=== PATIENT | female | born 1955 | race Caucasian/White ===

== ENCOUNTER 2019-09-08 08:24 | Inpatient (IN) | payer OTHER ==
[2019-09-08] MEDS ORDERED: IPRATROPIUM 0.5 MG/2.5 ML NEBU INHALATION STA (08:39)
[2019-09-08] MEDS ORDERED: SODIUM CHLORIDE 0.9% 500 ML 500 ML IV STA (08:39)
[2019-09-08] MEDS ORDERED: ALBUTEROL NEBULIZED 2.5 MG/3 ML INHALATION STA (08:39)
[2019-09-08] MEDS ORDERED: methylPREDNISolone SOD SUCCI 125 MG/2 ML VIAL IV STA (08:39)
--- NOTE | 2019-09-08 09:15 | ED ---
General Adult HPI - General Chief complaint: Shortness of Breath Stated complaint: cough/congestion Time Seen by Provider: 09/08/19 08:31 Source: patient, RN notes reviewed, old records reviewed Mode of arrival: ambulatory Limitations: no limitations - History of Present Illness Initial comments: 64-year-old female presenting for evaluation of cough and dyspnea. Cough has been nonproductive. He has been present for approximately 10 days. She's been seen by her primary care physician and prescribed a course of steroids and doxycycline. She is completed her steroids and continues to have persistent cough. Patient denying central chest pain. Denies lower extremity pain or swelling. Denies abdominal pain nausea or vomiting. She has had fever at home up to 101. She has history of COPD, not currently on supplemental oxygen. - Related Data Allergies Allergy/AdvReac Type Severity Reaction Status Date / Time hydroxyzine [From Vistaril] Allergy Anaphylaxis Verified 09/08/19 08:30 Review of Systems ROS Statement: Those systems with pertinent positive or pertinent negative responses have been documented in the HPI. ROS Other: All systems not noted in ROS Statement are negative. Past Medical History Past Medical History: COPD, Diabetes Mellitus, Hypertension Additional Past Medical History / Comment(s): pt states "i've had 2 heart attacks" hx 2004 History of Any Multi-Drug Resistant Organisms: None Reported Past Surgical History: Hysterectomy, Orthopedic Surgery, Tonsillectomy Additional Past Surgical History / Comment(s): bilateral feet Past Psychological History: No Psychological Hx Reported Smoking Status: Current every day smoker Past Alcohol Use History: Occasional Past Drug Use History: None Reported General Exam Limitations: no limitations General appearance: alert, in no apparent distress Head exam: Present: atraumatic, normocephalic Eye exam: Present: normal appearance, PERRL ENT exam: Present: normal exam Neck exam: Present: normal inspection. Absent: meningismus Respiratory exam: Present: respiratory distress, wheezes, decreased breath sounds Cardiovascular Exam: Present: regular rate, normal rhythm GI/Abdominal exam: Present: soft. Absent: distended, tenderness, guarding Neurological exam: Present: alert, oriented X3, CN II-XII intact. Absent: motor sensory deficit Psychiatric exam: Present: normal affect, normal mood Skin exam: Present: warm, dry, intact Course Vital Signs 09/08/19 09/08/19 09/08/19 08:25 08:49 09:05 Temperature 97.8 F Pulse Rate 84 88 92 Respiratory 20 Rate Blood Pressure 175/66 O2 Sat by Pulse 100 Oximetry 09/08/19 10:08 Temperature Pulse Rate Respiratory 20 Rate Blood Pressure O2 Sat by Pulse Oximetry EKG Findings - EKG Comments: EKG Findings:: EKG: Normal sinus rhythm, left atrial enlargement, rate of 89, W[place] interval 124, QRS duration 76, QTC 459, no ST segment elevation Medical Decision Making - Medical Decision Making 64-year-old female with 10 days of cough and dyspnea, failed outpatient treatment. X-ray negative for focal pneumonia, consistent with COPD. Patient has mild leukocytosis 10.7, stable hemoglobin, normal electrolytes. She is influenza and negative. She will be admitted for further treatment of COPD exacerbation. - Lab Data Result diagrams: 09/08/19 09:24 09/08/19 09:24 Lab Results 09/08/19 09/08/19 09/08/19 Range/Units 09:15 09:24 09:24 WBC 10.7 H (3.8-10.6) k/uL RBC 4.99 (3.80-5.40) m/uL Hgb 12.4 (11.4-16.0) gm/dL Hct 38.9 (34.0-46.0) % MCV 77.9 L (80.0-100.0) fL MCH 24.9 L (25.0-35.0) pg MCHC 31.9 (31.0-37.0) g/dL RDW 16.3 H (11.5-15.5) % Plt Count 320 (150-450) k/uL Neutrophils % 66 % Lymphocytes % 24 % Monocytes % 6 % Eosinophils % 2 % Basophils % 1 % Neutrophils # 7.1 (1.3-7.7) k/uL Lymphocytes # 2.6 (1.0-4.8) k/uL Monocytes # 0.7 (0-1.0) k/uL Eosinophils # 0.2 (0-0.7) k/uL Basophils # 0.1 (0-0.2) k/uL Anisocytosis Slight Microcytosis Slight Sodium 131 L (137-145) mmol/L Potassium 3.5 (3.5-5.1) mmol/L Chloride 96 L (98-107) mmol/L Carbon Dioxide 25 (22-30) mmol/L Anion Gap 10 mmol/L BUN 15 (7-17) mg/dL Creatinine 0.74 (0.52-1.04) mg/dL Est GFR (CKD-EPI)AfAm >90 (>60 ml/min/1.73 sqM) Est GFR (CKD-EPI)NonAf 87 (>60 ml/min/1.73 sqM) Glucose 109 H (74-99) mg/dL Plasma Lactic Acid Jose (0.7-2.0) mmol/L Calcium 9.7 (8.4-10.2) mg/dL Magnesium 1.6 (1.6-2.3) mg/dL Total Bilirubin 0.5 (0.2-1.3) mg/dL AST 32 (14-36) U/L ALT 16 (4-34) U/L Alkaline Phosphatase 90 (38-126) U/L Total Protein 7.2 (6.3-8.2) g/dL Albumin 4.6 (3.5-5.0) g/dL Influenza Type A RNA Not Detected (Not Detectd) Influenza Type B (PCR) Not Detected (Not Detectd) 09/08/19 Range/Units 09:24 WBC (3.8-10.6) k/uL RBC (3.80-5.40) m/uL Hgb (11.4-16.0) gm/dL Hct (34.0-46.0) % MCV (80.0-100.0) fL MCH (25.0-35.0) pg MCHC (31.0-37.0) g/dL RDW (11.5-15.5) % Plt Count (150-450) k/uL Neutrophils % % Lymphocytes % % Monocytes % % Eosinophils % % Basophils % % Neutrophils # (1.3-7.7) k/uL Lymphocytes # (1.0-4.8) k/uL Monocytes # (0-1.0) k/uL Eosinophils # (0-0.7) k/uL Basophils # (0-0.2) k/uL Anisocytosis Microcytosis Sodium (137-145) mmol/L Potassium (3.5-5.1) mmol/L Chloride (98-107) mmol/L Carbon Dioxide (22-30) mmol/L Anion Gap mmol/L BUN (7-17) mg/dL Creatinine (0.52-1.04) mg/dL Est GFR (CKD-EPI)AfAm (>60 ml/min/1.73 sqM) Est GFR (CKD-EPI)NonAf (>60 ml/min/1.73 sqM) Glucose (74-99) mg/dL Plasma Lactic Acid Jose 2.2 H* (0.7-2.0) mmol/L Calcium (8.4-10.2) mg/dL Magnesium (1.6-2.3) mg/dL Total Bilirubin (0.2-1.3) mg/dL AST (14-36) U/L ALT (4-34) U/L Alkaline Phosphatase (38-126) U/L Total Protein (6.3-8.2) g/dL Albumin (3.5-5.0) g/dL Influenza Type A RNA (Not Detectd) Influenza Type B (PCR) (Not Detectd) Disposition Clinical Impression: Acute exacerbation of chronic obstructive pulmonary disease Disposition: [facility] Condition: Stable Is patient prescribed a controlled substance at d/c from ED?: No Referrals: Noe Bennett MD [Primary Care Provider] - 1-2 days Decision to Admit Reason: Admit from EC Decision Date: 09/08/19 Decision Time: 10:40
[2019-09-08 10:02] LABS: Anisocytosis Slight; Basophils # (A) 0.1 k/uL (0-0.2); Basophils % (A) 1 %; Eosinophils # (A) 0.2 k/uL (0-0.7); Eosinophils % (A) 2 %; HCT 38.9 % (34.0-46.0); HGB 12.4 gm/dL (11.4-16.0); Lymphocytes # (A) 2.6 k/uL (1.0-4.8); Lymphocytes % (A) 24 %; MCH 24.9 pg (25.0-35.0); MCHC 31.9 g/dL (31.0-37.0); MCV 77.9 fL (80.0-100.0); Mean Platelet Volume 7.2; Microcytosis Slight; Monocytes # (A) 0.7 k/uL (0-1.0); Monocytes % (A) 6 %; Neutrophils # (A) 7.1 k/uL (1.3-7.7); Neutrophils % (A) 66 %; Platelet Count 320 k/uL (150-450); RBC 4.99 m/uL (3.80-5.40); RDW 16.3 % (11.5-15.5); WBC 10.7 k/uL (3.8-10.6)
[2019-09-08 10:14] LABS: ALT 16 U/L (4-34); AST 32 U/L (14-36); African American GFR (CKD) >90 (>60 ml/min/1.73 sqM); Albumin 4.6 g/dL (3.5-5.0); Alkaline Phosphatase 90 U/L (38-126); Anion Gap 10 mmol/L; Blood Urea Nitrogen 15 mg/dL (7-17); Calcium 9.7 mg/dL (8.4-10.2); Carbon Dioxide 25 mmol/L (22-30); Chloride 96 mmol/L (98-107); Glucose 109 mg/dL (74-99); Magnesium 1.6 mg/dL (1.6-2.3); Non-African American GFR(CKD) 87 (>60 ml/min/1.73 sqM); Potassium 3.5 mmol/L (3.5-5.1); Sodium 131 mmol/L (137-145); Total Bilirubin 0.5 mg/dL (0.2-1.3); Total Protein 7.2 g/dL (6.3-8.2)
--- NOTE | 2019-09-08 10:33 | XR ---
EXAMINATION TYPE: XR chest 2V DATE OF EXAM: 09/08/2019 COMPARISON: NONE HISTORY: Shortness of breath TECHNIQUE: Frontal and lateral views of the chest are obtained. FINDINGS: There is no focal air space opacity, pleural effusion, or pneumothorax seen. Pulmonary hyp erinflation with flattening of the indicative of underlying COPD. The cardiac silhouette size is with in normal limits. The osseous structures are intact. IMPRESSION: No acute cardiopulmonary process.
[2019-09-08] MEDS ORDERED: IPRATROPIUM-ALBUTEROL 3 ML NEB INHALATION PRN (10:38)
[2019-09-08] MEDS: IPRATROPIUM-ALBUTEROL 3 ML NEB INHALATION SCH ×3 (11:18→19:31)
[2019-09-08] MEDS: methylPREDNISolone SOD SUCCI 125 MG/2 ML VIAL IV SCH ×2 (13:41→19:19)
[2019-09-08] MEDS: LACTATED RINGERS 1,000 ML IV SCH (19:17)
[2019-09-08 20:40] LABS: Glucose,Whole Blood 399 mg/dL (75-99)
[2019-09-08] MEDS: INSULIN ASPART (NovoLOG) 100 UNIT/ML VIAL SQ SCH (20:50)
[2019-09-08] MEDS ORDERED: PRAVASTATIN SODIUM 40 MG TAB PO SCH (21:00)
[2019-09-08] MEDS ORDERED: MONTELUKAST 10 MG TAB PO SCH (21:00)
[2019-09-08] MEDS ORDERED: INSULIN ASPART (NovoLOG) 100 UNIT/ML VIAL SQ ONE (21:11)
--- NOTE | 2019-09-08 23:17 | P.HPIM ---
History of Present Illness H&P Date: 09/08/19 Chief Complaint: Short of breath, cough History of presenting complaint: This is a 64-year-old patient of Dr. Bennett. Chronic stable medical conditions include diabetes, hypertension, hyperlipidemia, osteoarthritis, GERD, urinary incontinence. Patient with long-standing smoker. For 10 days patient having increasing shortness of breath cough which is predominantly dry some fevers. Slight headache. Appetite has been good. No sputum. Patient did go to see her family doctor was given steroids and Biaxin 3 days ago. Not much help. Decided to come in. Patient is currently to smoke a few cigarettes a day. Influenza screen was negative the ER. Review of systems: GEN.: Tired fever EYES: None HEENT: None NECK: None RESPIRATORY: As above CARDIOVASCULAR: None GASTROINTESTINAL: None GENITOURINARY: None MUSCULOSKELETAL: Chronic low back pain] LYMPHATICS: None HEMATOLOGICAL: None PSYCHIATRY: None NEUROLOGICAL: None Past medical history to include: COPD, diabetes, hypertension, hyperlipidemia, osteoarthritis, GERD, fractured lumbar spine, urinary incontinence Social history: Patient smoked mostly about 2 packs a day for close to 47 years. Down to a few cigarettes a day. Lives with 2 sons and her [id number]. Alcohol occasionally. Physical examination: VITAL SIGNS: 97.8, 84, 20, blood pressure 1070 47, 97% on room air GENERAL: BMI 21.6, sitting up slightly short of breath. EYES: Pupils equal. Conjunctiva normal. HEENT: External appearance of nose and ears normal, oral cavity grossly normal. NECK: JVD not raised; masses not palpable. HEART: First and second heart sounds are normal; no edema. LUNGS: Respiratory rate increased, decreased breath sounds. ABDOMEN: Soft, nontender, liver spleen not palpable, no masses palpable. PSYCH: [Alert and oriented x3; mood and affect slightly anxious l. NEUROLOGICAL: Cranial nerves grossly intact; no facial asymmetry, power and sensation grossly intact. LYMPHATICS: No lymph nodes palpable in the axilla and neck. INVESTIGATIONS, reviewed in the clinical context: White count 10.7 12.4 potassium 3.5 creatinine 0.74 lactic acid 2.2-4.6 Influenza type A and type B both negative EKG tracing personally reviewed by me-shows normal sinus rhythm Chest x-ray film-lung howard clear hyperinflation Assessment: -Acute severe COPD exacerbation in a current smoker -No evidence of pneumonia in the chest x-ray. Could be a viral bronchitis. We'll check pro calcitonin -Diabetes mellitus type 2 on oral hypoglycemic -Essential hypertension -Hyperlipidemia -Primary osteoarthritis -GERD Chronic urinary stress incontinence -Chronic nicotine dependence Plan: Patient started on IVs Solu-Medrol. DuoNeb. Home medications resumed. Accu- Cheks will be followed. Flu swab was negative. We'll check for RSV. Patient was consulted. Nicotine patch admitted. Pulmonary consulted. Past Medical History Past Medical History: COPD, Diabetes Mellitus, Hypertension Additional Past Medical History / Comment(s): pt states "i've had 2 heart attacks" hx 2004 History of Any Multi-Drug Resistant Organisms: None Reported Past Surgical History: Adenoidectomy, Appendectomy, Hysterectomy, Orthopedic Surgery, Tonsillectomy Additional Past Surgical History / Comment(s): bilateral feet Additional Past Anesthesia/Blood Transfusion Reaction / Comment(s): never had Past Psychological History: No Psychological Hx Reported Smoking Status: Current every day smoker Past Alcohol Use History: Occasional Past Drug Use History: None Reported - Past Family History Brother(s) Family Medical History: Cancer Additional Family Medical History / Comment(s): breast/thryroid cancer Medications and Allergies Home Medications Medication Instructions Recorded Confirmed Type Aspirin EC [Ecotrin Low Dose] 81 mg PO DAILY 09/08/19 09/08/19 History Doxycycline Hyclate 100 mg PO BID 09/08/19 09/08/19 History Furosemide [Lasix] 20 mg PO DAILY 09/08/19 09/08/19 History Ipratropium-Albuterol Nebulize 3 ml INHALATION RT-Q6H PRN 09/08/19 09/08/19 History [Duoneb 0.5 mg-3 mg/3 ml Soln] Isosorbide Mononitrate ER [Imdur] 15 mg PO DAILY 09/08/19 09/08/19 History Linagliptin [Tradjenta] 5 mg PO DAILY 09/08/19 09/08/19 History Losartan-Hctz 50-12.5 mg [Hyzaar 1 tab PO DAILY 09/08/19 09/08/19 History 50-12.5] Montelukast [Singulair] 10 mg PO HS 09/08/19 09/08/19 History Omeprazole 20 mg PO DAILY 09/08/19 09/08/19 History Potassium Chloride ER [K-Dur 20] 20 meq PO DAILY 09/08/19 09/08/19 History Pravastatin Sodium [Pravachol] 40 mg PO HS 09/08/19 09/08/19 History metFORMIN HCL [Glucophage] 500 mg PO BID 09/08/19 09/08/19 History predniSONE See Taper PO DAILY 09/08/19 09/08/19 History Allergies Allergy/AdvReac Type Severity Reaction Status Date / Time cefaclor [From Ceclor] Allergy Unknown Verified 09/08/19 11:10 hydroxyzine [From Vistaril] Allergy Anaphylaxis Verified 09/08/19 11:10 Physical Exam Vitals: Vital Signs Temp Pulse Pulse Resp BP BP Pulse Ox 09/08/19 20:31 98.0 F 89 17 131/68 97 09/08/19 19:48 100 09/08/19 19:31 100 09/08/19 16:37 94 09/08/19 16:26 94 09/08/19 12:18 98.7 F 98 20 114/64 97 09/08/19 11:10 98.1 F 67 18 107/47 97 09/08/19 10:38 98.1 F 67 18 107/47 97 09/08/19 10:08 20 09/08/19 09:05 92 09/08/19 08:49 88 09/08/19 08:25 97.8 F 84 20 175/66 100 Intake and Output 09/08/19 09/08/19 09/09/19 14:59 22:59 06:59 Intake Total 400 Balance 400 Intake: Amount of Fluid Infused ( 400 ml) Other: # Voids 0 1 # Bowel Movements 0 Weight 55.338 kg Results CBC & Chem 7: 09/08/19 09:24 09/08/19 09:24 Labs: Abnormal Lab Results - Last 24 Hours (Table) 09/08/19 09/08/19 09/08/19 Range/Units 09:24 09:24 09:24 WBC 10.7 H (3.8-10.6) k/uL MCV 77.9 L (80.0-100.0) fL MCH 24.9 L (25.0-35.0) pg RDW 16.3 H (11.5-15.5) % Sodium 131 L (137-145) mmol/L Chloride 96 L (98-107) mmol/L Glucose 109 H (74-99) mg/dL POC Glucose (mg/dL) (75-99) mg/dL Plasma Lactic Acid Jose 2.2 H* (0.7-2.0) mmol/L 09/08/19 09/08/19 09/08/19 Range/Units 13:44 17:47 20:36 WBC (3.8-10.6) k/uL MCV (80.0-100.0) fL MCH (25.0-35.0) pg RDW (11.5-15.5) % Sodium (137-145) mmol/L Chloride (98-107) mmol/L Glucose (74-99) mg/dL POC Glucose (mg/dL) 399 H (75-99) mg/dL Plasma Lactic Acid Jose 4.6 H* 5.1 H* (0.7-2.0) mmol/L 09/08/19 Range/Units 21:26 WBC (3.8-10.6) k/uL MCV (80.0-100.0) fL MCH (25.0-35.0) pg RDW (11.5-15.5) % Sodium (137-145) mmol/L Chloride (98-107) mmol/L Glucose (74-99) mg/dL POC Glucose (mg/dL) (75-99) mg/dL Plasma Lactic Acid Jose 4.6 H* (0.7-2.0) mmol/L Thrombosis Risk Factor Assmnt - Choose All That Apply Any of the Below Risk Factors Present?: Yes Other Risk Factors: Yes Each Risk Factor Represents 2 Points: Age 61-74 years Other congenital or acquired thrombophilia - If yes, enter type in comment: No Thrombosis Risk Factor Assessment Total Risk Factor Score: 2 Thrombosis Risk Factor Assessment Level: Low Risk
[2019-09-08] MEDS: methylPREDNISolone SOD SUCCI 40 MG/ML 1 ML VIAL IV SCH (23:59)
[2019-09-09] MEDS: LACTATED RINGERS 1,000 ML IV SCH ×2 (03:38→13:09)
[2019-09-09 04:39] VITALS: RESP 18
[2019-09-09 07:07] LABS: Glucose,Whole Blood 210 mg/dL (75-99)
[2019-09-09] MEDS ORDERED: PANTOPRAZOLE 40 MG TABLET PO SCH (07:30)
[2019-09-09] MEDS: methylPREDNISolone SOD SUCCI 40 MG/ML 1 ML VIAL IV SCH (07:57)
[2019-09-09 08:00] VITALS: BP 187/69; TEMP 98.2
[2019-09-09] MEDS: INSULIN ASPART (NovoLOG) 100 UNIT/ML VIAL SQ SCH ×2 (08:07→12:40)
[2019-09-09] MEDS ORDERED: ASPIRIN 81 MG PO SCH (09:00)
[2019-09-09] MEDS ORDERED: ENOXAPARIN 40 MG/0.4 ML SYRINGE SQ SCH (09:00)
[2019-09-09] MEDS ORDERED: FUROSEMIDE 20 MG TAB PO SCH (09:00)
[2019-09-09] MEDS ORDERED: AZITHROMYCIN 500 MG TAB PO SCH (09:00)
[2019-09-09] MEDS ORDERED: ISOSORBIDE MONONITRATE ER 15 MG TAB PO SCH (09:00)
[2019-09-09] MEDS ORDERED: POTASSIUM CHLORIDE ER 20 MEQ TAB.ER PO SCH (09:00)
[2019-09-09] MEDS ORDERED: NICOTINE 7MG/24HR PATCH TRANSDERM SCH (09:00)
[2019-09-09] MEDS ORDERED: LINAGLIPTIN 5 MG TABLET PO SCH (09:00)
[2019-09-09] MEDS ORDERED: metFORMIN 500 MG TAB PO SCH (09:00)
[2019-09-09] MEDS ORDERED: LOSARTAN-HCTZ 50-12.5 MG 1 EACH TAB PO SCH (09:00)
[2019-09-09] MEDS: IPRATROPIUM-ALBUTEROL 3 ML NEB INHALATION SCH ×2 (10:00→13:12)
[2019-09-09 12:27] VITALS: BMI 21.6
--- NOTE | 2019-09-09 12:31 | P.CNPUL ---
History of Present Illness Consult date: 09/09/19 Requesting physician: Juan Diego Brewer Reason for consult: dyspnea, COPD Chief complaint: Shortness of breath, dry nonproductive cough History of present illness: This is a very pleasant 64-year-old female patient who follows with Barbara Beltre as her primary care provider. She has a history of diabetes mellitus, hypertension, hyperlipidemia, osteoarthritis, gastroesophageal reflux, urinary incontinence. She also has a significant history of chronic and ongoing tobacco dependence of greater than 45 years sometimes up to 2 packs per day. She presented here to the emergency room yesterday with ongoing dry nonproductive cough and shortness of breath. She was treated with doxycycline and a p rednisone taper without much improvement. She states her children wanted her here to be checked out. She denies any fever, chills or night sweats. No nausea, vomiting. No recent travels. Chest x-ray shows no acute process. Blood culture reveals no growth to date. White count 10.7. Hemoglobin 12.4. Creatinine 0.74. Lactic acid fluctuating between 2.2 and 5.5. Influenza screen negative. RSV negative. She is seen today on the regular medical floor. She is awake and alert in no acute distress. She is maintaining good O2 saturations up to 100% on room air. She's been afebrile this admission. She is anxious to go home. Review of Systems REVIEW OF SYSTEMS: CONSTITUTIONAL: Denies any recent significant weight loss or weight gain. EYES: Denies change in vision. EARS, NOSE, MOUTH, THROAT: Denies headaches, denies sore throat. CARDIOVASCULAR: Denies chest pain, palpitations or syncopal episodes. RESPIRATORY: Positive for shortness of breath, cough, no congestion or hemoptysis. GASTROINTESTINAL: Denies change in appetite, denies abdominal pain GENITOURINARY: Denies hematuria, denies infections. MUSKULOSKELETAL: Denies pain, denies swelling. INTEGUMENTARY: Denies rash, denies eczema. NEUROLOGICAL: Denies recent memory loss, no recent seizure activity. PSYCHIATRIC: Denies anxiety, denies depression. HEMATOLOGIC/LYMPHATIC: Denies anemia, denies enlarged lymph nodes. Past Medical History Past Medical History: COPD, Diabetes Mellitus, Hypertension Additional Past Medical History / Comment(s): pt states "i've had 2 heart attacks" hx 2004 History of Any Multi-Drug Resistant Organisms: None Reported Past Surgical History: Adenoidectomy, Appendectomy, Hysterectomy, Orthopedic Surgery, Tonsillectomy Additional Past Surgical History / Comment(s): bilateral feet Additional Past Anesthesia/Blood Transfusion Reaction / Comment(s): never had Past Psychological History: No Psychological Hx Reported Smoking Status: Current every day smoker Past Alcohol Use History: Occasional Past Drug Use History: None Reported - Past Family History Brother(s) Family Medical History: Cancer Additional Family Medical History / Comment(s): breast/thryroid cancer Medications and Allergies Home Medications Medication Instructions Recorded Confirmed Type Aspirin EC [Ecotrin Low Dose] 81 mg PO DAILY 09/08/19 09/08/19 History Doxycycline Hyclate 100 mg PO BID 09/08/19 09/08/19 History Furosemide [Lasix] 20 mg PO DAILY 09/08/19 09/08/19 History Ipratropium-Albuterol Nebulize 3 ml INHALATION RT-Q6H PRN 09/08/19 09/08/19 History [Duoneb 0.5 mg-3 mg/3 ml Soln] Isosorbide Mononitrate ER [Imdur] 15 mg PO DAILY 09/08/19 09/08/19 History Linagliptin [Tradjenta] 5 mg PO DAILY 09/08/19 09/08/19 History Losartan-Hctz 50-12.5 mg [Hyzaar 1 tab PO DAILY 09/08/19 09/08/19 History 50-12.5] Montelukast [Singulair] 10 mg PO HS 09/08/19 09/08/19 History Omeprazole 20 mg PO DAILY 09/08/19 09/08/19 History Potassium Chloride ER [K-Dur 20] 20 meq PO DAILY 09/08/19 09/08/19 History Pravastatin Sodium [Pravachol] 40 mg PO HS 09/08/19 09/08/19 History metFORMIN HCL [Glucophage] 500 mg PO BID 09/08/19 09/08/19 History predniSONE See Taper PO DAILY 09/08/19 09/08/19 History Allergies Allergy/AdvReac Type Severity Reaction Status Date / Time cefaclor [From Ceclor] Allergy Unknown Verified 09/08/19 11:10 hydroxyzine [From Vistaril] Allergy Anaphylaxis Verified 09/08/19 11:10 Physical Exam Vitals: Vital Signs Temp Pulse Pulse Resp BP Pulse Ox 09/09/19 10:10 96 09/09/19 10:00 92 09/09/19 07:59 98.2 F 85 18 187/69 100 09/09/19 04:17 97.6 F 92 18 174/72 99 09/08/19 20:31 98.0 F 89 17 131/68 97 09/08/19 19:48 100 09/08/19 19:31 100 09/08/19 16:37 94 09/08/19 16:26 94 09/08/19 12:18 98.7 F 98 20 114/64 97 Intake and Output 09/08/19 09/09/19 09/09/19 22:59 06:59 14:59 Other: # Voids 1 1 # Bowel Movements 0 0 GENERAL EXAM: Alert, active, pleasant 64-year-old female patient, on room air, comfortable in no apparent distress. HEAD: Normocephalic. EYES: Normal reaction of pupils, equal size. NOSE: Clear with pink turbinates. THROAT: No erythema or exudates. NECK: No masses, no JVD. CHEST: No chest wall deformity. LUNGS: Equal air entry with no crackles, wheeze, rhonchi or dullness. Diminished. CVS: S1 and S2 normal with no audible murmur, regular rhythm. ABDOMEN: No hepatosplenomegaly, normal bowel sounds, no guarding or rigidity. SPINE: No scoliosis or deformity SKIN: No rashes CENTRAL NERVOUS SYSTEM: No focal deficits, tone is normal in all 4 extremities. EXTREMITIES: There is no peripheral edema. No clubbing, no cyanosis. Peripheral pulses are intact. Results - Laboratory Findings CBC and BMP: 09/08/19 09:24 09/08/19 09:24 Abnormal lab findings: Abnormal Labs 09/08/19 09/08/19 09/08/19 09:24 09:24 09:24 WBC 10.7 H MCV 77.9 L MCH 24.9 L RDW 16.3 H Sodium 131 L Chloride 96 L Glucose 109 H POC Glucose (mg/dL) Plasma Lactic Acid Jose 2.2 H* 09/08/19 09/08/19 09/08/19 13:44 17:47 20:36 WBC MCV MCH RDW Sodium Chloride Glucose POC Glucose (mg/dL) 399 H Plasma Lactic Acid Jose 4.6 H* 5.1 H* 09/08/19 09/09/19 09/09/19 21:26 01:45 06:45 WBC MCV MCH RDW Sodium Chloride Glucose POC Glucose (mg/dL) Plasma Lactic Acid Jose 4.6 H* 2.7 H* 5.5 H* 09/09/19 07:02 WBC MCV MCH RDW Sodium Chloride Glucose POC Glucose (mg/dL) 210 H Plasma Lactic Acid Jose - Diagnostic Findings Chest x-ray: image reviewed Assessment and Plan Assessment: 1 Acute exacerbation of suspected significant chronic obstructive pulmonary disease 2 Chronic and ongoing tobacco dependence of greater than 45 years at times up to 2 packs per day 3 Diabetes mellitus with steroid-induced hyperglycemia 4 Lactic acidosis without evidence of sepsis 5 Hypertension 6 Hyperlipidemia 7 GERD 8 Urinary incontinence Plan: The patient was seen and evaluated by Dr. Dinero. Chest x-ray and labs reviewed. She is cleared for discharge from the pulmonary standpoint. Complete a prednisone taper. Complete a course of antibiotics. She is educated regardphilip g the importance of complete smoking cessation. She would benefit from a follow-up in our office where we can perform full pulmonary function testing to evaluate the severity of her COPD and make further recommendations regarding maintenance medications. I, the cosigning physician, performed a history & physical examination of the patient. Lungs sounds are clear, diminished. Maintaining good O2 saturations in the 90s on room air. I discussed the assessment and plan of care with my nurse practitioner, Brit Zepeda. I attest to the above consultation as dictated by her. Time with Patient: Greater than 30
[2019-09-09 12:35] LABS: Glucose,Whole Blood 100 mg/dL (75-99)
[2019-09-09 13:17] VITALS: PULSE 100
--- NOTE | 2019-09-09 20:02 | P.DS ---
Providers Date of admission: 09/08/19 10:38 Expected date of discharge: 09/09/19 Attending physician: Juan Diego Brewer Consults: 09/08/19 23:06 Consult Physician Routine Consulting Provider: Schuyler Dinero Consult Reason/Comments: Short of breath Do you want consulting provider notified?: Yes Primary care physician: Noe Bennett [facility] Course: Chief Complaint: Short of breath, cough History of presenting complaint: This is a 64-year-old patient of Dr. Bennett. Chronic stable medical conditions include diabetes, hypertension, hyperlipidemia, osteoarthritis, GERD, urinary incontinence. Patient with long-standing smoker. For 10 days patient having increasing shortness of breath cough which is predominantly dry some fevers. Slight headache. Appetite has been good. No sputum. Patient did go to see her family doctor was given steroids and Biaxin 3 days ago. Not much help. Decided to come in. Patient is currently to smoke a few cigarettes a day. Influenza screen was negative the ER. Admitted with COPD exacerbation, acute tracheobronchitis. Treated with bronchodilators IV Solu-Medrol. Today-feeling much better. Breathing improved. Slight cough. Seen by Dr. Tavarez. Okay to be discharged. Discussed with patient. Consultation: Dr. Tavarez from pulmonary Physical examination: VITAL SIGNS: 98.2, 85, 18, blood pressure 174/72, 99% on room air GENERAL: Sitting up, formal comfortable. EYES: Pupils equal. Conjunctiva normal. HEENT: External appearance of nose and ears normal, oral cavity grossly normal. NECK: JVD not raised; masses not palpable. HEART: First and second heart sounds are normal; no edema. LUNGS: Respiratory rate increased, decreased breath sounds. ABDOMEN: Soft, nontender, liver spleen not palpable, no masses palpable. PSYCH: [Alert and oriented x3; mood and affect slightly anxious l. . INVESTIGATIONS, reviewed in the clinical context: White count 10.7 12.4 potassium 3.5 creatinine 0.74 lactic acid 2.2-4.6 Influenza type A and type B both negative EKG tracing personally reviewed by me-shows normal sinus rhythm Chest x-ray film-lung howard clear hyperinflation [id number] Assessment: -Acute severe COPD exacerbation in a current smoker -No evidence of pneumonia in the chest x-ray. Could be a tracheo- bronchitis. -Diabetes mellitus type 2 on oral hypoglycemic -Essential hypertension -Hyperlipidemia -Primary osteoarthritis -GERD Chronic urinary stress incontinence -Chronic nicotine dependence Disposition: Home Patient Condition at Discharge: Stable Plan - Discharge Summary Discharge Rx Participant: Yes New Discharge Prescriptions: New Nicotine 7Mg/24Hr Patch [Habitrol] 1 patch TRANSDERM DAILY #14 patch predniSONE 10 mg PO DAILY #30 tab Azithromycin [Zithromax] 500 mg PO DAILY #5 tab Continue Potassium Chloride ER [K-Dur 20] 20 meq PO DAILY Omeprazole 20 mg PO DAILY Losartan-Hctz 50-12.5 mg [Hyzaar 50-12.5] 1 tab PO DAILY Isosorbide Mononitrate ER [Imdur] 15 mg PO DAILY Furosemide [Lasix] 20 mg PO DAILY Aspirin EC [Ecotrin Low Dose] 81 mg PO DAILY metFORMIN HCL [Glucophage] 500 mg PO BID Pravastatin Sodium [Pravachol] 40 mg PO HS Montelukast [Singulair] 10 mg PO HS Linagliptin [Tradjenta] 5 mg PO DAILY Changed Ipratropium-Albuterol Nebulize [Duoneb 0.5 mg-3 mg/3 ml Soln] 3 ml INHALATION TID #90 neb Discontinued predniSONE See Taper PO DAILY Doxycycline Hyclate 100 mg PO BID Discharge Medication List Aspirin EC [Ecotrin Low Dose] 81 mg PO DAILY 09/08/19 [History] Furosemide [Lasix] 20 mg PO DAILY 09/08/19 [History] Isosorbide Mononitrate ER [Imdur] 15 mg PO DAILY 09/08/19 [History] Linagliptin [Tradjenta] 5 mg PO DAILY 09/08/19 [History] Losartan-Hctz 50-12.5 mg [Hyzaar 50-12.5] 1 tab PO DAILY 09/08/19 [History] Montelukast [Singulair] 10 mg PO HS 09/08/19 [History] Omeprazole 20 mg PO DAILY 09/08/19 [History] Potassium Chloride ER [K-Dur 20] 20 meq PO DAILY 09/08/19 [History] Pravastatin Sodium [Pravachol] 40 mg PO HS 09/08/19 [History] metFORMIN HCL [Glucophage] 500 mg PO BID 09/08/19 [History] Azithromycin [Zithromax] 500 mg PO DAILY #5 tab 09/09/19 [Rx] Ipratropium-Albuterol Nebulize [Duoneb 0.5 mg-3 mg/3 ml Soln] 3 ml INHALATION TID #90 neb 09/09/19 [Rx] Nicotine 7Mg/24Hr Patch [Habitrol] 1 patch TRANSDERM DAILY #14 patch 09/09/19 [Rx] predniSONE 10 mg PO DAILY #30 tab 09/09/19 [Rx] Follow up Appointment(s)/Referral(s): Noe Bennett MD [Primary Care Provider] - 3 Days (Please call and schedule follow up appointment when office is open ) Patient Instructions/Handouts: COPD (Chronic Obstructive Pulmonary Disease) (DC) Discharge Disposition: HOME SELF-CARE
== END 2019-09-09 14:34 | disposition home or self-care (01) | DRG 191 ==
LOC: EC 08:24 → 6NMEDSUR 10:38
PROVIDERS: ADMIT Hospitalist; ATTEND Hospitalist
DX: J44.1 Chronic obstructive pulmonary disease with (acute) exacerbation (principal); E87.2 Acidosis; J44.0 Chronic obstructive pulmonary disease with (acute) lower respiratory infection; J20.9 Acute bronchitis, unspecified; I10 Essential (primary) hypertension; K21.9 Gastro-esophageal reflux disease without esophagitis; F17.210 Nicotine dependence, cigarettes, uncomplicated; E78.5 Hyperlipidemia, unspecified; E11.65 Type 2 diabetes mellitus with hyperglycemia; M19.91 Primary osteoarthritis, unspecified site; N39.3 Stress incontinence (female) (male); T38.0X5A Adverse effect of glucocorticoids and synthetic analogues, initial encounter; I25.2 Old myocardial infarction; Z79.82 Long term (current) use of aspirin; Z79.84 Long term (current) use of oral hypoglycemic drugs; Z79.899 Other long term (current) drug therapy; Z90.710 Acquired absence of both cervix and uterus; Z88.1 Allergy status to other antibiotic agents; Z88.8 Allergy status to other drugs, medicaments and biological substances
CPT/HCPCS: 36415; 71046; 80053; 83605; 83735; 85025; 87040; 87502; 87634; 93005; 94640; 96361; 96365; 96375; 99285

== ENCOUNTER → 2019-11-10 | Outpatient (CLI) | payer OTHER ==
[2019-11-10 15:32] LABS: African American GFR (CKD) 69.4 (60.0-200.0); Anion Gap 4.9 mmol/L (4.00-12.00); Calcium 9.4 mg/dL (8.7-10.3); Carbon Dioxide 27.1 mmol/L (21.6-31.8); Non-African American GFR(CKD) 59.9 (60.0-200.0); Potassium 4.7 mmol/L (3.5-5.5)
== END | disposition home or self-care (01) ==
LOC: LABWHC1 08:09
PROVIDERS: ATTEND Physician Assistant
DX: E87.1 Hypo-osmolality and hyponatremia (principal); Z79.899 Other long term (current) drug therapy
CPT/HCPCS: 36415; 80048

== ENCOUNTER → 2020-04-09 | Outpatient (CLI) | payer OTHER ==
--- NOTE | 2020-04-09 09:46 | CTL ---
EXAMINATION TYPE: CT Low Dose Lung DATE OF EXAM ORDERED: 04/09/2020 HISTORY: rodent exterminator tobacco use. Lung cancer screening CT DLP: 59.[address] CTDI: 1.7 mGy Automated exposure control for dose reduction was used. SCREENING VISIT: Initial study COMPARISON: None. TECHNIQUE: Low dose computed tomography scan was performed through the chest at 1 mm thick sections a nd reconstructed images in the coronal plane at [address] DIAGNOSTIC QUALITY: Satisfactory FINDINGS: LUNG NODULES: Present, detailed below: Scattered small nodules bilaterally. For reference: There is 4 mm anterior right mid to lower nodule axial image 164. There is 3 mm right midlung anterior nodule axial image 96. There is 4 x 3 mm nodule or scar like opacity right upper lung axial image 32. There is 7 x 3 mm elongated nodule or scar like opacity posterior right upper lung axial image 37. There is 4 x 3 mm left upper lobe nodule axial image 79. There is 2 x 3 mm superior left lower lobe nodule axial image 110. Additional scattered nodules measuring under 4 mm in size right more numerous than left longer presen t. LUNGS: COPD: Severity: Moderate Fibrosis: Severity: Mild biapical. Moderate right mid lung medially adjacent to heart border versus a telectatic change. Lymph nodes: No greater than 1 cm Other findings: Mild central peribronchial wall thickening presumed product of underlying COPD. BILATERAL PLEURAL SPACE: Effusion: None Calcification: None Thickening: None Pneumothorax: None HEART: Heart Size: Normal Coronary calcification: Moderate Pericardial effusion: None OTHER FINDINGS: Upper abdomen: None Bony thorax: None Supraclavicular region: None Other: None IMPRESSION: Moderate emphysematous change with scattered small nodules right more numerous than left. FOLLOW UP CT CHEST RECOMMENDATION: Annual low-dose lung screening CT CT LUNG RAD: Lung-Rad 2 Benign Appearance or Behavior
== END | disposition home or self-care (01) ==
LOC: RADCTMAIN 08:24
PROVIDERS: ATTEND Family Medicine
DX: Z12.2 Encounter for screening for malignant neoplasm of respiratory organs (principal); J43.9 Emphysema, unspecified; R91.8 Other nonspecific abnormal finding of lung field; F17.210 Nicotine dependence, cigarettes, uncomplicated

== ENCOUNTER → 2020-07-11 | Outpatient (CLI) | payer OTHER ==
[2020-07-11 10:29] LABS: Appearance,Urine Clear (Clear); Bilirubin,Urine Negative (Negative); Blood,Urine Negative (Negative); Color,Urine Light Yellow; Glucose,Urine (UA) Negative (Negative); Ketones,Urine Negative (Negative); Leukocyte Esterase,Urine Negative (Negative); Nitrite,Urine Negative (Negative); PH, Urine 6.5 (5.0-8.0); Protein,Urine Negative (Negative); Specific Gravity,Urine 1.006 (1.001-1.035); Urobilinogen,Urine <2.0 mg/dL (<2.0)
[2020-07-11 16:26] LABS: African American GFR (CKD) 68.9 (60.0-200.0); Albumin 4.9 g/dL (3.80-4.90); Albumin/Globulin Ratio 2.72 (1.60-3.17); Calcium 10.2 mg/dL (8.7-10.3); Chol/HDL Ratio 2.95; Globulin 1.8 g/dL (1.6-3.3); Non-African American GFR(CKD) 59.5 (60.0-200.0); Potassium 4.5 mmol/L (3.5-5.5); Total Bilirubin 0.5 mg/dL (0.2-1.2); Total Protein 6.7 g/dL (6.2-8.2)
[2020-07-11 19:16] LABS: Hemoglobin A1C 6.2 % (4.0-6.0)
[2020-07-11 20:46] LABS: Microalbumin Creatinine Ratio <30 mg/g Creat (0-30); Urine Creatinine 15.1 mg/dL
== END | disposition home or self-care (01) ==
LOC: LABWHC1 09:20
PROVIDERS: ATTEND Physician Assistant
DX: I10 Essential (primary) hypertension (principal); E78.2 Mixed hyperlipidemia; E11.59 Type 2 diabetes mellitus with other circulatory complications; E55.9 Vitamin D deficiency, unspecified; E20.0 Idiopathic hypoparathyroidism; F41.1 Generalized anxiety disorder; I25.118 Atherosclerotic heart disease of native coronary artery with other forms of angina pectoris; K21.9 Gastro-esophageal reflux disease without esophagitis; J41.8 Mixed simple and mucopurulent chronic bronchitis; Z79.899 Other long term (current) drug therapy
CPT/HCPCS: 36415; 80053; 80061; 81003; 82043; 82306; 82570; 83036

== ENCOUNTER → 2020-08-13 | Outpatient (CLI) | payer OTHER ==
[2020-08-13 09:42] LABS: Basophils % (A) 1 %; Eosinophils # (A) 0.2 k/uL (0-0.7); Eosinophils % (A) 4 %; HCT 39.7 % (34.0-46.0); HGB 12.7 gm/dL (11.4-16.0); Lymphocytes # (A) 1.5 k/uL (1.0-4.8); Lymphocytes % (A) 29 %; MCHC 31.8 g/dL (31.0-37.0); MCV 81.8 fL (80.0-100.0); Mean Platelet Volume 7.7; Monocytes # (A) 0.3 k/uL (0-1.0); Monocytes % (A) 7 %; Neutrophils # (A) 2.9 k/uL (1.3-7.7); Neutrophils % (A) 58 %; Platelet Count 205 k/uL (150-450); RBC 4.86 m/uL (3.80-5.40); RDW 15.8 % (11.5-15.5)
[2020-08-13 09:59] LABS: Albumin 4.3 g/dL (3.5-5.0); Calcium 9.7 mg/dL (8.4-10.2); Total Bilirubin 0.5 mg/dL (0.2-1.3); Total Protein 6.8 g/dL (6.3-8.2)
--- NOTE | 2020-08-13 10:24 | US ---
EXAMINATION TYPE: US abdomen complete DATE OF EXAM: 08/13/2020 COMPARISON: NONE CLINICAL HISTORY: R10.11 Right upper quadrant pain. Helicobacter pylori infection. Pain. EXAM MEASUREMENTS: Liver Length: 13.6 cm Gallbladder Wall: 0.2 cm CBD: 0.9 cm Spleen: 8.9 cm Right Kidney: 8.9 x 4.8 x 4.9 cm Left Kidney: 9.1 x 4.3 x 4.9 cm Pancreas: wnl Liver: Coarse in appearance Gallbladder: wnl Evidence for sonographic Lloyd's sign: neg CBD: Mild Enlarged in size. Spleen: wnl Right Kidney: No hydronephrosis or masses seen Left Kidney: No hydronephrosis or masses seen Upper IVC: wnl Abd Aorta: Small distal bulge seen = 2.2 x 1.7 x 1.8 cm The visualized liver is homogenous. The intrahepatic portion of the IVC and visualized abdominal aor ta show focal ectasia without greater than 3.0 cm dilatation distally. There is no evidence of shado wing mobile cholelithiasis. Common bile duct is mildly dilated between 6 to 9 mm in images saved. T he visualized portions of the pancreas are homogenous. The spleen is unremarkable. Kidneys are symm etric and free of hydronephrosis. No renal lesions are seen on images saved. IMPRESSION: Mild extrahepatic biliary dilatation without intrahepatic biliary dilatation. Need to fur ther investigate by MRI/MRCP should be based on clinical correlation.
== END | disposition home or self-care (01) ==
LOC: RADUSWWP 08:42
PROVIDERS: ATTEND Family Medicine
DX: K83.8 Other specified diseases of biliary tract (principal); R10.11 Right upper quadrant pain; Z12.11 Encounter for screening for malignant neoplasm of colon; Z86.19 Personal history of other infectious and parasitic diseases
CPT/HCPCS: 36415; 76700; 80053; 82150; 83690; 85025

== ENCOUNTER → 2020-10-01 | Outpatient (CLI) | payer OTHER | END | disposition home or self-care (01) | LOC: LABWHC1 16:54 | PROVIDERS: ATTEND Family Medicine | DX: Z20.822 Contact with and (suspected) exposure to COVID-19 (principal); R51.9 Headache, unspecified; R11.0 Nausea; R05 Cough; R53.83 Other fatigue; R50.9 Fever, unspecified | CPT/HCPCS: U0003; C9803 ==

== ENCOUNTER → 2020-12-17 | Outpatient (CLI) | payer OTHER ==
[2020-12-17 09:18] LABS: Appearance,Urine Clear (Clear); Bilirubin,Urine Negative (Negative); Blood,Urine Negative (Negative); Color,Urine Yellow; Glucose,Urine (UA) Negative (Negative); Ketones,Urine Negative (Negative); Leukocyte Esterase,Urine Large (Negative); Mucus,Urine Rare /hpf; Nitrite,Urine Negative (Negative); PH, Urine 6.5 (5.0-8.0); Protein,Urine Negative (Negative); Specific Gravity,Urine 1.015 (1.001-1.035); Squamous Epithelial Cell,Urine 2 /hpf (0-4); Urobilinogen,Urine <2.0 mg/dL (<2.0); WBC,Urine 2 /hpf (0-5)
[2020-12-17 17:03] LABS: Hemoglobin A1C 6.5 % (4.0-6.0)
[2020-12-17 17:40] LABS: African American GFR (CKD) 42.2 (60.0-200.0); Albumin 4.5 g/dL (3.80-4.90); Albumin/Globulin Ratio 2.14 (1.60-3.17); Calcium 9.4 mg/dL (8.7-10.3); Chol/HDL Ratio 2.85; Globulin 2.1 g/dL (1.6-3.3); LDL Cholesterol,Calculated 91.4 mg/dL (0.0-131.0); Non-African American GFR(CKD) 36.4 (60.0-200.0); Potassium 3.8 mmol/L (3.5-5.5); Total Bilirubin 0.4 mg/dL (0.3-1.2); Total Protein 6.6 g/dL (6.2-8.2); VLDL Calculation 28.6 mg/dL (5.00-40.00)
[2020-12-17 19:18] LABS: Urine Alcohol Negative (Negative); Urine Barbiturate Negative (Negative); Urine Cocaine Negative (Negative); Urine Methadone Negative (Negative); Urine Opiates Negative (Negative); Urine Phencyclidine Negative (Negative)
[2020-12-17 20:21] LABS: Microalbumin Creatinine Ratio 5 mg/g Creat (0-30); Urine Creatinine 94.8 mg/dL
== END | disposition home or self-care (01) ==
LOC: LABWHC1 08:47
PROVIDERS: ATTEND Physician Assistant
DX: E78.2 Mixed hyperlipidemia (principal); E55.9 Vitamin D deficiency, unspecified; I25.118 Atherosclerotic heart disease of native coronary artery with other forms of angina pectoris; E11.59 Type 2 diabetes mellitus with other circulatory complications; K21.9 Gastro-esophageal reflux disease without esophagitis; I10 Essential (primary) hypertension
CPT/HCPCS: 36415; 80053; 80061; 80306; 81001; 82043; 82306; 82570; 83036; 84443

== ENCOUNTER 2021-01-31 19:11 | Emergency (ER) | payer MEDICARE, OTHER ==
[2021-01-31 19:19] VITALS: BP 157/107; PULSE 84; RESP 18; TEMP 98.3
[2021-01-31] MEDS ORDERED: KETOROLAC 15 MG/ML 1 ML VIAL IM STA (19:52)
--- NOTE | 2021-01-31 19:53 | ED ---
ENT HPI - General Chief complaint: ENT Stated complaint: Ear Pain Source: patient, RN notes reviewed Mode of arrival: ambulatory Limitations: no limitations - History of Present Illness Initial comments: 66-year-old well-appearing white female, alert and oriented 4, presents to the emergency room with complaints of 2 hours of sudden onset shooting left ear pain. Patient states that she did not injure it, has had no drainage or fevers. She states she has not gone swimming. She states that the pain is shooting and very tender to try to put anything in the ear. She denies any loss of hearing, tinnitus, nausea, vomiting, headaches or fevers. MD complaint: ear pain -: hour(s) (2) Location: L ear Severity: severe Severity scale (1-10): 10 Quality: sharp Consistency: constant Improves with: none Worsens with: other (Putting anything in the ear) - Related Data Home Medications Medication Instructions Recorded Confirmed Aspirin EC [Ecotrin Low Dose] 81 mg PO DAILY 09/08/19 09/08/19 Furosemide [Lasix] 20 mg PO DAILY 09/08/19 09/08/19 Isosorbide Mononitrate ER [Imdur] 15 mg PO DAILY 09/08/19 09/08/19 Linagliptin [Tradjenta] 5 mg PO DAILY 09/08/19 09/08/19 Losartan-Hctz 50-12.5 mg [Hyzaar 1 tab PO DAILY 09/08/19 09/08/19 50-12.5] Montelukast [Singulair] 10 mg PO HS 09/08/19 09/08/19 Omeprazole 20 mg PO DAILY 09/08/19 09/08/19 Potassium Chloride ER [K-Dur 20] 20 meq PO DAILY 09/08/19 09/08/19 Pravastatin Sodium [Pravachol] 40 mg PO HS 09/08/19 09/08/19 metFORMIN HCL [Glucophage] 500 mg PO BID 09/08/19 09/08/19 Previous Rx's Medication Instructions Recorded Azithromycin [Zithromax] 500 mg PO DAILY #5 tab 09/09/19 Ipratropium-Albuterol Nebulize 3 ml INHALATION TID #90 neb 09/09/19 [Duoneb 0.5 mg-3 mg/3 ml Soln] Nicotine 7Mg/24Hr Patch [Habitrol] 1 patch TRANSDERM DAILY #14 patch 09/09/19 predniSONE 10 mg PO DAILY #30 tab 09/09/19 Allergies Allergy/AdvReac Type Severity Reaction Status Date / Time cefaclor [From Ceclor] Allergy Unknown Verified 01/31/21 19:19 hydroxyzine [From Vistaril] Allergy Anaphylaxis Verified 01/31/21 19:19 terbinafine [From Lamisil] Allergy Anaphylaxis Verified 01/31/21 19:20 peroxide Allergy Rash/Hives Uncoded 01/31/21 19:20 Review of Systems ROS Statement: Those systems with pertinent positive or pertinent negative responses have been documented in the HPI. ROS Other: All systems not noted in ROS Statement are negative. Past Medical History Past Medical History: COPD, Diabetes Mellitus, Hyperlipidemia, Hypertension, Myocardial Infarction ([place]) Additional Past Medical History / Comment(s): pt states "i've had 2 heart attacks" hx 2004 History of Any Multi-Drug Resistant Organisms: None Reported Past Surgical History: Adenoidectomy, Appendectomy, Hysterectomy, Orthopedic Surgery, Tonsillectomy Additional Past Surgical History / Comment(s): bilateral feet Additional Past Anesthesia/Blood Transfusion Reaction / Comment(s): never had Past Psychological History: No Psychological Hx Reported Smoking Status: Never smoker Past Alcohol Use History: Occasional Past Drug Use History: None Reported - Past Family History Brother(s) Family Medical History: Cancer Additional Family Medical History / Comment(s): breast/thryroid cancer General Exam Limitations: no limitations General appearance: alert, in no apparent distress Head exam: Present: atraumatic, normocephalic, normal inspection Eye exam: Present: normal appearance, PERRL, EOMI. Absent: scleral icterus, conjunctival injection, periorbital swelling Pupils: Present: normal accommodation ENT exam: Present: normal exam, normal oropharynx, mucous membranes moist, TM's normal bilaterally, normal external ear exam Neck exam: Present: normal inspection, full ROM. Absent: tenderness, meningismus, lymphadenopathy, thyromegaly Respiratory exam: Present: normal lung sounds bilaterally. Absent: respiratory distress, wheezes, rales, rhonchi, stridor, chest wall tenderness, accessory muscle use, decreased breath sounds, prolonged expiratory Cardiovascular Exam: Present: regular rate, normal rhythm, normal heart sounds. Absent: systolic murmur, diastolic murmur, rubs, gallop, clicks GI/Abdominal exam: Present: soft, normal bowel sounds. Absent: distended, tenderness, guarding, rebound, rigid Back exam: Present: full ROM. Absent: tenderness Neurological exam: Present: alert, oriented X3, CN II-XII intact Psychiatric exam: Present: normal affect, normal mood Skin exam: Present: warm, dry, intact, normal color. Absent: rash Course Vital Signs 01/31/21 19:16 Temperature 98.3 F Pulse Rate 84 Respiratory 18 Rate Blood Pressure 157/107 O2 Sat by Pulse 97 Oximetry Medical Decision Making - Medical Decision Making There is no evidence of external otitis media, tympanic membrane is clear. Patient does not have a fever, denies any headache, loss of hearing or eye pain. Patient does not have a rash. This is likely trigeminal neuralgia she describes the pain is shooting. She was given a shot of Toradol and directed to take Tylenol and/or Motrin as needed for pain. She was directed to return if worsening pain or if a rash develops. Follow-up with ENT. Case discussed with Dr. Cooper. Disposition Clinical Impression: Trigeminal neuralgia of left side of face Disposition: HOME SELF-CARE Condition: Good Instructions (If sedation given, give patient instructions): Trigeminal Neuralgia (ED), Earache (ED) Additional Instructions: Return if any fevers or worsening symptoms. Follow-up with ENT Dr. Montanez next week. Tylenol and/or Motrin for pain. Is patient prescribed a controlled substance at d/c from ED?: No Referrals: Sarah Pace MD [Primary Care Provider] - 1-2 days Time of Disposition: 20:12
== END 2021-01-31 20:30 | disposition home or self-care (01) ==
LOC: EC 19:11
DX: G50.0 Trigeminal neuralgia (principal); J44.9 Chronic obstructive pulmonary disease, unspecified; E11.9 Type 2 diabetes mellitus without complications; E78.5 Hyperlipidemia, unspecified; I10 Essential (primary) hypertension; I25.2 Old myocardial infarction; Z88.1 Allergy status to other antibiotic agents; Z79.82 Long term (current) use of aspirin; Z79.84 Long term (current) use of oral hypoglycemic drugs; Z90.89 Acquired absence of other organs; Z90.49 Acquired absence of other specified parts of digestive tract; Z90.710 Acquired absence of both cervix and uterus
CPT/HCPCS: 99282; 96372; J1885

== ENCOUNTER 2021-03-06 14:33 | Observation (INO) | payer MEDICARE ==
[2021-03-06] MEDS ORDERED: NITROGLYCERIN OINT 1 INCH/GM PACKET TOPICAL STA (14:57)
[2021-03-06] MEDS ORDERED: NITROGLYCERIN SL TABS 0.4 MG TAB SUBLINGUAL STA (14:57)
[2021-03-06] MEDS ORDERED: ASPIRIN 81 MG PO STA (14:57)
[2021-03-06 15:17] LABS: Basophils # (A) 0.1 k/uL (0-0.2); Basophils % (A) 1 %; Eosinophils # (A) 0.2 k/uL (0-0.7); Eosinophils % (A) 2 %; HCT 40.5 % (34.0-46.0); HGB 13.8 gm/dL (11.4-16.0); Lymphocytes # (A) 1.9 k/uL (1.0-4.8); Lymphocytes % (A) 27 %; MCH 28.9 pg (25.0-35.0); MCHC 34.1 g/dL (31.0-37.0); MCV 84.8 fL (80.0-100.0); Mean Platelet Volume 7.6; Monocytes # (A) 0.4 k/uL (0-1.0); Monocytes % (A) 5 %; Neutrophils # (A) 4.4 k/uL (1.3-7.7); Neutrophils % (A) 62 %; Platelet Count 220 k/uL (150-450); RBC 4.78 m/uL (3.80-5.40); RDW 14.9 % (11.5-15.5)
[2021-03-06 15:26] LABS: INR 0.9 (<1.2); Partial Thromboplastin Time 22.6 sec (22.0-30.0); Prothrombin Time 9.8 sec (9.0-12.0)
[2021-03-06 15:27] LABS: Albumin 4.6 g/dL (3.5-5.0); Calcium 9.7 mg/dL (8.4-10.2); Magnesium 2.1 mg/dL (1.6-2.3); Potassium 3.9 mmol/L (3.5-5.1); Total Bilirubin 0.4 mg/dL (0.2-1.3); Total Protein 7.3 g/dL (6.3-8.2)
--- NOTE | 2021-03-06 15:40 | ED ---
General Adult HPI - General Chief complaint: Recheck/Abnormal Lab/Rx Stated complaint: High BP Time Seen by Provider: 03/06/21 14:40 Source: patient, RN notes reviewed, old records reviewed Mode of arrival: wheelchair Limitations: no limitations - History of Present Illness Initial comments: This is a 66-year-old female who presents emergency Department complaining of a weeklong history of having intermittent chest pain and a headache. Patient states her blood pressures been high for this last week and she thinks it might be related. Patient states the chest pain typically lasts about 5 minutes and then goes away. Patient states currently she has no chest pain. Patient denies any difficulty breathing however she does state that she has diabetes high blood pressure and high cholesterol and also continues smoking. Patient states her blood pressure home was 187/107. Patient continues to have a headache now. Patient denies any swelling to the legs or calf tenderness. - Related Data Home Medications Medication Instructions Recorded Confirmed Aspirin EC [Ecotrin Low Dose] 81 mg PO DAILY 09/08/19 09/08/19 Furosemide [Lasix] 20 mg PO DAILY 09/08/19 09/08/19 Isosorbide Mononitrate ER [Imdur] 15 mg PO DAILY 09/08/19 09/08/19 Linagliptin [Tradjenta] 5 mg PO DAILY 09/08/19 09/08/19 Losartan-Hctz 50-12.5 mg [Hyzaar 1 tab PO DAILY 09/08/19 09/08/19 50-12.5] Montelukast [Singulair] 10 mg PO HS 09/08/19 09/08/19 Omeprazole 20 mg PO DAILY 09/08/19 09/08/19 Potassium Chloride ER [K-Dur 20] 20 meq PO DAILY 09/08/19 09/08/19 Pravastatin Sodium [Pravachol] 40 mg PO HS 09/08/19 09/08/19 metFORMIN HCL [Glucophage] 500 mg PO BID 09/08/19 09/08/19 Previous Rx's Medication Instructions Recorded Azithromycin [Zithromax] 500 mg PO DAILY #5 tab 09/09/19 Ipratropium-Albuterol Nebulize 3 ml INHALATION TID #90 neb 09/09/19 [Duoneb 0.5 mg-3 mg/3 ml Soln] Nicotine 7Mg/24Hr Patch [Habitrol] 1 patch TRANSDERM DAILY #14 patch 09/09/19 predniSONE 10 mg PO DAILY #30 tab 09/09/19 Allergies Allergy/AdvReac Type Severity Reaction Status Date / Time cefaclor [From Ceclor] Allergy Unknown Verified 03/06/21 14:39 hydroxyzine [From Vistaril] Allergy Anaphylaxis Verified 03/06/21 14:39 terbinafine [From Lamisil] Allergy Anaphylaxis Verified 03/06/21 14:39 peroxide Allergy Rash/Hives Uncoded 03/06/21 14:39 Review of Systems ROS Statement: Those systems with pertinent positive or pertinent negative responses have been documented in the HPI. ROS Other: All systems not noted in ROS Statement are negative. Past Medical History Past Medical History: COPD, Diabetes Mellitus, Hyperlipidemia, Hypertension, Myocardial Infarction ([place]) Additional Past Medical History / Comment(s): pt states "i've had 2 heart attacks" hx 2004 History of Any Multi-Drug Resistant Organisms: None Reported Past Surgical History: Adenoidectomy, Appendectomy, Hysterectomy, Orthopedic Surgery, Tonsillectomy Additional Past Surgical History / Comment(s): bilateral feet Additional Past Anesthesia/Blood Transfusion Reaction / Comment(s): never had Past Psychological History: No Psychological Hx Reported Smoking Status: Never smoker Past Alcohol Use History: Occasional Past Drug Use History: None Reported - Past Family History Brother(s) Family Medical History: Cancer Additional Family Medical History / Comment(s): breast/thryroid cancer General Exam - General Exam Comments Initial Comments: GENERAL: Patient is well-developed and well-nourished. Patient is nontoxic and well- hydrated and is in mild distress. ENT: Neck is soft and supple. No significant lymphadenopathy is noted. Oropharynx is clear. Moist mucous membranes. Neck has full range of motion without eliciting any pain. EYES: The sclera were anicteric and conjunctiva were pink and moist. Extraocular movements were intact and pupils were equal round and reactive to light. Eyelids were unremarkable. PULMONARY: Unlabored respirations. Good breath sounds bilaterally. No audible rales rhonchi or wheezing was noted. CARDIOVASCULAR: There is a regular rate and rhythm without any murmurs gallops or rubs. ABDOMEN: Soft and nontender with normal bowel sounds. SKIN: Skin is clear with no lesions or rashes and otherwise unremarkable. NEUROLOGIC: Patient is alert and oriented x3. Cranial nerves II through XII are grossly intact. Motor and sensory are also intact. Normal speech, volume and content. Symmetrical smile. MUSCULOSKELETAL: Normal extremities with adequate strength and full range of motion. No lower extremity swelling or edema. No calf tenderness. LYMPHATICS: No significant lymphadenopathy is noted PSYCHIATRIC: Normal psychiatric evaluation. Limitations: no limitations Course Vital Signs 03/06/21 03/06/21 14:37 15:58 Temperature 98.3 F Pulse Rate 86 72 Respiratory 18 18 Rate Blood Pressure 160/97 158/86 O2 Sat by Pulse 98 97 Oximetry Medical Decision Making - Medical Decision Making EKG shows normal sinus rhythm at 85 bpm [place] interval is 124 [place] is 78 QT interval 44 QTC is 480. Patient's EKG shows no ST segment elevation or depression. CT of the brain shows no acute abnormality. Chest x-ray shows no acute abnormality. Patient's chest pain came back and he was given nitroglycerin. Patient states the nitroglycerin did help with her chest pain. Spoke with Dr. Pace he agreed to admit the patient admitted the patient I consult cardiology. - Lab Data Result diagrams: 03/06/21 15:03 03/06/21 15:03 Lab Results 03/06/21 03/06/21 03/06/21 Range/Units 15:03 15:03 15:03 WBC 7.0 (3.8-10.6) k/uL RBC 4.78 (3.80-5.40) m/uL Hgb 13.8 (11.4-16.0) gm/dL Hct 40.5 (34.0-46.0) % MCV 84.8 (80.0-100.0) fL MCH 28.9 (25.0-35.0) pg MCHC 34.1 (31.0-37.0) g/dL RDW 14.9 (11.5-15.5) % Plt Count 220 (150-450) k/uL MPV 7.6 Neutrophils % 62 % Lymphocytes % 27 % Monocytes % 5 % Eosinophils % 2 % Basophils % 1 % Neutrophils # 4.4 (1.3-7.7) k/uL Lymphocytes # 1.9 (1.0-4.8) k/uL Monocytes # 0.4 (0-1.0) k/uL Eosinophils # 0.2 (0-0.7) k/uL Basophils # 0.1 (0-0.2) k/uL PT 9.8 (9.0-12.0) sec INR 0.9 (<1.2) APTT 22.6 (22.0-30.0) sec Sodium 135 L (137-145) mmol/L Potassium 3.9 (3.5-5.1) mmol/L Chloride 102 (98-107) mmol/L Carbon Dioxide 22 (22-30) mmol/L Anion Gap 11 mmol/L BUN 14 (7-17) mg/dL Creatinine 1.09 H (0.52-1.04) mg/dL Est GFR (CKD-EPI)AfAm 62 (>60 ml/min/1.73 sqM) Est GFR (CKD-EPI)NonAf 54 (>60 ml/min/1.73 sqM) Glucose 108 H (74-99) mg/dL Calcium 9.7 (8.4-10.2) mg/dL Magnesium 2.1 (1.6-2.3) mg/dL Total Bilirubin 0.4 (0.2-1.3) mg/dL AST 23 (14-36) U/L ALT 13 (4-34) U/L Alkaline Phosphatase 71 (38-126) U/L Troponin I (0.000-0.034) ng/mL Total Protein 7.3 (6.3-8.2) g/dL Albumin 4.6 (3.5-5.0) g/dL 03/06/21 Range/Units 15:03 WBC (3.8-10.6) k/uL RBC (3.80-5.40) m/uL Hgb (11.4-16.0) gm/dL Hct (34.0-46.0) % MCV (80.0-100.0) fL MCH (25.0-35.0) pg MCHC (31.0-37.0) g/dL RDW (11.5-15.5) % Plt Count (150-450) k/uL MPV Neutrophils % % Lymphocytes % % Monocytes % % Eosinophils % % Basophils % % Neutrophils # (1.3-7.7) k/uL Lymphocytes # (1.0-4.8) k/uL Monocytes # (0-1.0) k/uL Eosinophils # (0-0.7) k/uL Basophils # (0-0.2) k/uL PT (9.0-12.0) sec INR (<1.2) APTT (22.0-30.0) sec Sodium (137-145) mmol/L Potassium (3.5-5.1) mmol/L Chloride (98-107) mmol/L Carbon Dioxide (22-30) mmol/L Anion Gap mmol/L BUN (7-17) mg/dL Creatinine (0.52-1.04) mg/dL Est GFR (CKD-EPI)AfAm (>60 ml/min/1.73 sqM) Est GFR (CKD-EPI)NonAf (>60 ml/min/1.73 sqM) Glucose (74-99) mg/dL Calcium (8.4-10.2) mg/dL Magnesium (1.6-2.3) mg/dL Total Bilirubin (0.2-1.3) mg/dL AST (14-36) U/L ALT (4-34) U/L Alkaline Phosphatase (38-126) U/L Troponin I <0.012 (0.000-0.034) ng/mL Total Protein (6.3-8.2) g/dL Albumin (3.5-5.0) g/dL Disposition Clinical Impression: Chest pain, Hypertension, Cephalgia Disposition: ADMITTED IP TO THIS HOSP Referrals: Sarah Pace MD [Primary Care Provider] - 1-2 days Time of Disposition: 16:39
--- NOTE | 2021-03-06 15:40 | CT ---
EXAMINATION TYPE: CT brain wo con DATE OF EXAM: 03/06/2021 COMPARISON: None HISTORY: 66-year-old female headache TECHNIQUE: Examination was done in axial plane without intravenous contrast. Coronal and sagittal r econstructions performed. CT DLP: 1011.4 mGycm Automated exposure control for dose reduction was used. FINDINGS: There is no evidence of acute intracranial hemorrhage, acute ischemic changes, mass, mass-effect, or extra-axial fluid collection. There is no effacement of cerebral sulci or basal subarachnoid cister ns. There is no hydrocephalus. There is no midline shift. Tee-white matter distinction is preserv ed. Paranasal sinuses and mastoid air cells are well pneumatized. Orbits and globes are intact. IMPRESSION: No acute intracranial abnormality seen.
[2021-03-06] MEDS ORDERED: ACETAMINOPHEN TAB 325 MG TAB PO STA (15:58)
--- NOTE | 2021-03-06 16:01 | XR ---
EXAMINATION TYPE: XR chest 2V DATE OF EXAM: 03/06/2021 COMPARISON: 09/08/2019 HISTORY: 66-year-old female with chest pain TECHNIQUE: AP and lateral views FINDINGS: The cardiomediastinal silhouette, aorta, and pulmonary vasculature are within normal limits. Mild hyp erinflation. Some strandy atelectasis in the lower lungs. Otherwise, lungs and pleural spaces are kathleen ar. IMPRESSION: Mild hyperinflation may relate to a depth of inspiration or underlying emphysema. Clinically correlat e. No definite acute process.
[2021-03-06] MEDS ORDERED: NITROGLYCERIN SL TABS 0.4 MG TAB SUBLINGUAL PRN ×2 (16:39→20:04)
[2021-03-06 19:44] VITALS: RESP 16
[2021-03-06] MEDS ORDERED: ACETAMINOPHEN TAB 325 MG TAB PO PRN (20:04)
[2021-03-06] MEDS ORDERED: HYDROcodone/APAP 10-325MG 1 EACH TAB PO PRN (20:04)
[2021-03-06 20:24] LABS: Glucose,Whole Blood 165 mg/dL (75-99)
[2021-03-06] MEDS ORDERED: PRAVASTATIN SODIUM 40 MG TAB PO SCH (21:00)
[2021-03-06] MEDS ORDERED: amLODIPine 5 MG TAB PO SCH (21:00)
[2021-03-06] MEDS ORDERED: FAMOTIDINE 20 MG TAB PO SCH (21:00)
[2021-03-06] MEDS: NITROGLYCERIN OINT 1 INCH/GM PACKET TOPICAL SCH (21:23)
[2021-03-06] MEDS: metFORMIN 500 MG TAB PO SCH (21:47)
--- NOTE | 2021-03-07 00:11 | HP ---
HISTORY AND PHYSICAL DATE OF SERVICE: 03/06/2021 CHIEF COMPLAINTS: Chest pain and hypertension. HISTORY OF PRESENT ILLNESS: This 66-year-old woman with a past medical history of multiple medical problems, including COPD, diabetes mellitus, hypertension, history of myocardial infarction, being followed by Dr. Sarah Pace in the outpatient setting, was complaining of severe left-sided chest pain radiating to the shoulder, which also happened last night and it was worse in character. It was a squeezing type of pain. No history of any sweating or palpitations. The patient came to [facility] and was admitted for further evaluation and treatment. The patient also has a history of high cholesterol. Blood was found to be 187, 107. The evaluation in the ER showed normal troponins and the EKG, which I personally reviewed, showed evidence of LVH and nonspecific ST-T changes. The patient apparently had a cardiac stress test scheduled as an outpatient. There is no history of any fever, rigor or chills. PAST MEDICAL HISTORY: COPD, diabetes, hypertension, hyperlipidemia, history of myocardial infarction. MEDICATIONS: Home medications are Glucophage, Norvasc, Pravachol, K-Dur, Nitrostat, losartan, gliptin, Imdur, [place], Lasix, Pepcid, Nexium, Ecotrin, Lac-Hydrin. ALLERGIES: CEFACLOR, VISTARIL, LAMISIL. FAMILY HISTORY: History of breast cancer, thyroid cancer. SOCIAL HISTORY: History of smoking. No history of alcohol intake. REVIEW OF SYSTEMS: ENT: Diminished hearing. Diminished vision. CARDIOVASCULAR SYSTEM: As mentioned earlier. RESPIRATORY SYSTEM: As mentioned earlier. GI: No nausea, vomiting, diarrhea. : No dysuria. NERVOUS SYSTEM: No numbness, weakness. ALLERGY/IMMUNOLOGY: No asthma or hay fever. MUSCULOSKELETAL: As mentioned earlier. HEMATOLOGY/ONCOLOGY: No history of anemia. ENDOCRINE: As mentioned earlier. CONSTITUTIONAL: As mentioned earlier. DERMATOLOGY: Negative. RHEUMATOLOGY: Negative. PSYCHIATRY: As mentioned earlier. PHYSICAL EXAMINATION: Patient alert and oriented x3. Pulse 74, blood pressure 136/76, respirations 16, temperature 98 degrees, pulse ox 95% on room air. HEENT: Conjunctivae normal. Oral mucosa moist. NECK: No jugular venous distention. No carotid bruit. No lymph node enlargement. CARDIOVASCULAR: S1, S2 muffled. No S3. No S4. RESPIRATION: Breath sounds diminished at the bases. No rhonchi. No crackles. ABDOMEN: Soft, nontender. No mass palpable. LEGS: No edema. No swelling. NERVOUS SYSTEM: Higher functions as mentioned earlier. Moves all 4 limbs. No focal motor or sensory deficit. LYMPHATICS: No lymph node palpable in neck, axillae or groin. SKIN: No ulcer, rash, bleeding. JOINTS: No active deforming arthropathy. LABS: CBC within normal limits. Sodium 135. Glucose 165. The chest x-ray which was reviewed personally by me showed no acute abnormality; some chronic changes. CT of the brain showed no acute abnormality. ASSESSMENT: 1. Chest pain; possible unstable angina. 2. Chronic obstructive pulmonary disease. 3. Diabetes mellitus, type 2. 4. Hypertension. 5. Hyperlipidemia. 6. History of degenerative joint disease. 7. Adenoidectomy. 8. Appendectomy. 9. History of hysterectomy. 10.Hyponatremia, mild. 11.Elevated random glucose. 12.FULL CODE. RECOMMENDATIONS AND DISCUSSION: In this 66-year-old woman who presented with multiple complex medical issues, at this time I recommend to continue current medications, continue symptomatic treatment. Otherwise, cardiology consultation. Rule out myocardial infarction. Possible stress test. Symptomatic treatment will be provided. Guarded prognosis because of multiple complex medical problems. Further recommendations to follow. COVID-19 is negative. A copy of this dictation is being forwarded to Dr. Sarah Pace, who is the primary physician. MMODL / CARROLLN: [id number] / MTDD
[2021-03-07] MEDS: NITROGLYCERIN OINT 1 INCH/GM PACKET TOPICAL SCH ×2 (01:05→05:03)
[2021-03-07 01:48] VITALS: TEMP 98.1
[2021-03-07 07:21] LABS: Glucose,Whole Blood 92 mg/dL (75-99)
[2021-03-07] MEDS ORDERED: PANTOPRAZOLE 40 MG TABLET PO SCH (07:30)
[2021-03-07 08:13] VITALS: BP 149/72; PULSE 75
[2021-03-07] MEDS ORDERED: ISOSORBIDE MONONITRATE ER 30 MG TAB.ER.24H PO SCH (09:00)
[2021-03-07] MEDS ORDERED: ASPIRIN 81 MG PO SCH (09:00)
[2021-03-07] MEDS ORDERED: ASPIRIN 325 MG TAB PO SCH (09:00)
[2021-03-07] MEDS ORDERED: LOSARTAN 50 MG TAB PO SCH (09:00)
[2021-03-07] MEDS ORDERED: FUROSEMIDE 20 MG TAB PO SCH (09:00)
[2021-03-07] MEDS ORDERED: POTASSIUM CHLORIDE ER 20 MEQ TAB.ER PO SCH (09:00)
[2021-03-07] MEDS ORDERED: AMMONIUM LACTATE 12% CREAM 140 GM TUBE TOPICAL SCH (09:00)
[2021-03-07] MEDS ORDERED: LINAGLIPTIN 5 MG TABLET PO SCH (09:00)
[2021-03-07] MEDS: metFORMIN 500 MG TAB PO SCH (09:37)
[2021-03-07 10:10] LABS: African American GFR (CKD) 53 (>60 ml/min/1.73 sqM); Anion Gap 5 mmol/L; Blood Urea Nitrogen 16 mg/dL (7-17); Calcium 9.4 mg/dL (8.4-10.2); Carbon Dioxide 24 mmol/L (22-30); Chloride 106 mmol/L (98-107); Glucose 89 mg/dL (74-99); Non-African American GFR(CKD) 46 (>60 ml/min/1.73 sqM); Potassium 4.2 mmol/L (3.5-5.1); Sodium 135 mmol/L (137-145)
--- NOTE | 2021-03-07 10:58 | P.CRDCN ---
History of Present Illness History of present illness: HISTORY OF PRESENTING ILLNESS This is a pleasant 66-year-old female past medical history significant for diabetes mellitus, hypertension, dyslipidemia and chronic nicotine dependen ce. She follows in the office with Dr. Delgado. We have been asked to see in consultation for chest pain. She states for the previous 2 days she has been experiencing intermittent episodes of discomfort in the chest that radiates around to the left scapular region. She has been checking her blood pressure regularly at home and it has remained elevated above 180 systolic. She is also having an associated headache and weakness. She states she has no energy to do anything. The discomfort in her chest and back is not reproducible on palpation or with deep breathing. The pain is not associated with exertion or activity. She recently saw Dr. Delgado in the office and was scheduled to have a Lexiscan stress test as well as an echocardiogram performed in the next couple of weeks. On arrival to the emergency department her blood pressure was 160/97. She states she is compliant with her medication regimen. DIAGNOSTICS EKG reveals sinus mechanism heart rate of [address] or T wave abnormalities noted. Telemetry tracings indicate sinus mechanism with no acute arrhythmia or signifi cant pauses. Chest xray hyperinflation with no acute cardiopulmonary process. Brain CT is negative for an acute intracranial abnormality. Laboratory reviewed, CBC unremarkable, sodium 135, potassium 3.9, creatinine 1.09, magnesium 2.1, cardiac enzymes negative 3. Current cardiac medications include aspirin 81 mg daily, Lasix 20 mg daily, Imdur 30 mg daily, losartan 50 mg daily, pravastatin 40 mg daily and amlodipine 5 mg daily. Most recent cardiac workup was in 2016 with a Lexiscan stress test and an echocardiogram both normal. REVIEW OF SYSTEMS At the time of my exam: CONSTITUTIONAL: Denies fever or chills. CARDIOVASCULAR: Denies chest pain, shortness of breath, orthopnea, PND or palpitations. RESPIRATORY: Denies cough. GASTROINTESTINAL: Denies abdominal pain, diarrhea, constipation, nausea or vomiting. MUSCULOSKELETAL: Denies myalgias. NEUROLOGIC: Denies numbness, tingling, headache or weakness. ENDOCRINE: Denies fatigue, weight change, polydipsia or polyurina. GENITOURINARY: Denies burning, hematuria or urgency with micturation. HEMATOLOGIC: Denies history of anemia or bleeding. PHYSICAL EXAMINATION Blood pressure 149/72 heart rate 75 afebrile and maintaining oxygen saturation on room air. CONSTITUTIONAL: No apparent distress. HEENT: Head is normocephalic. Pupils are equal, round. Sclerae anicteric. Mucous membranes of the mouth are moist. No JVD. No carotid bruit. CHEST EXAMINATION: Faint expiratory wheeze noted on the left, diminished bilaterally. No rales or rhonchi. No chest wall tenderness is noted on palpation or with deep breathing. HEART EXAMINATION: Regular rate and rhythm. S1, S2 heard. Systolic ejection murmur at the base, no gallops or rub. ABDOMEN: Soft, nontender. EXTREMITIES: 2+ peripheral pulses, no lower extremity edema and no calf tend erness. NEUROLOGIC EXAMINATION: Patient is awake, alert and oriented x3. ASSESSMENT Chest pain Hypertension, uncontrolled Acute kidney injury Diabetes mellitus Dyslipidemia Chronic nicotine dependence PLAN Repeat troponin to assess trend. Obtain 2-D echocardiogram and Doppler study to assess cardiac structure and function. The patient is quite anxious to be discharged home. She would prefer to have her stress test performed as an outpatient. She is agreeable to undergo repeat lab testing and echocardiogram. She is agreeable to proceed with any further testing if any of those tests have any abnormalities however if both of those tests come back normal she would like to go home and continue with her already scheduled stress test. Advised her to increase activity and ambulation in the halls, assess for exertional chest pain. Thank you kindly for this consultation. Nurse Practitioner note has been reviewed, I agree with a documented findings and plan of care. Patient was seen and examined. Past Medical History Past Medical History: COPD, Diabetes Mellitus, Hyperlipidemia, Hypertension, Myocardial Infarction (AR) Additional Past Medical History / Comment(s): pt states "i've had 2 heart attacks" hx 2004 Last Myocardial Infarction Date:: 2004 History of Any Multi-Drug Resistant Organisms: None Reported Past Surgical History: Adenoidectomy, Appendectomy, Hysterectomy, Orthopedic Surgery, Tonsillectomy Additional Past Surgical History / Comment(s): bilateral feet Additional Past Anesthesia/Blood Transfusion Reaction / Comment(s): never had Past Psychological History: No Psychological Hx Reported Smoking Status: Never smoker Past Alcohol Use History: Occasional Past Drug Use History: None Reported - Past Family History Brother(s) Family Medical History: Cancer Additional Family Medical History / Comment(s): breast/thryroid cancer Medications and Allergies Home Medications Medication Instructions Recorded Confirmed Type Aspirin EC [Ecotrin Low Dose] 81 mg PO DAILY 09/08/19 03/06/21 History Furosemide [Lasix] 20 mg PO DAILY 09/08/19 03/06/21 History Linagliptin [Tradjenta] 5 mg PO DAILY 09/08/19 03/06/21 History Potassium Chloride ER [K-Dur 20] 20 meq PO DAILY 09/08/19 03/06/21 History Pravastatin Sodium [Pravachol] 40 mg PO HS 09/08/19 03/06/21 History metFORMIN HCL [Glucophage] 500 mg PO BID 09/08/19 03/06/21 History Ammonium Lactate Cream [Lac-Hydrin 1 applic TOPICAL DAILY 03/06/21 03/06/21 History 12% Cream] Esomeprazole Magnesium [NexIUM] 40 mg PO DAILY 03/06/21 03/06/21 History Famotidine [Pepcid] 40 mg PO HS 03/06/21 03/06/21 History HYDROcodone/APAP 10-325MG [[place] 1 tab PO QID PRN 03/06/21 03/06/21 History 10-325] Isosorbide Mononitrate ER [Imdur] 30 mg PO DAILY 03/06/21 03/06/21 History Losartan Potassium 50 mg PO DAILY 03/06/21 03/06/21 History Nitroglycerin Sl Tabs [Nitrostat] 0.4 mg SUBLINGUAL Q5M PRN 03/06/21 03/06/21 History amLODIPine [Norvasc] 5 mg PO HS 03/06/21 03/06/21 History Allergies Allergy/AdvReac Type Severity Reaction Status Date / Time cefaclor [From Ceclor] Allergy Unknown Verified 03/06/21 16:44 hydroxyzine [From Vistaril] Allergy Anaphylaxis Verified 03/06/21 16:44 terbinafine [From Lamisil] Allergy Anaphylaxis Verified 03/06/21 16:44 peroxide Allergy Rash/Hives Uncoded 03/06/21 14:39 Physical Exam Vitals: Vital Signs Temp Pulse Pulse Resp BP BP Pulse Ox 03/07/21 01:47 98.1 F 76 16 136/74 97 03/06/21 20:00 74 16 03/06/21 19:44 98 F 74 16 136/76 96 03/06/21 18:27 97.8 F 76 18 147/78 97 03/06/21 15:58 72 18 158/86 97 03/06/21 14:37 98.3 F 86 18 160/97 98 Intake and Output 03/06/21 03/07/21 03/07/21 22:59 06:59 14:59 Other: Voiding Method Toilet Toilet # Voids 1 2 Weight 50.802 kg Results 03/06/21 15:03 03/07/21 05:13 Cardiac Enzymes 03/06/21 03/06/21 03/06/21 Range/Units 15:03 15:03 19:00 AST 23 (14-36) U/L Troponin I <0.012 <0.012 (0.000-0.034) ng/mL 03/06/21 Range/Units 21:21 AST (14-36) U/L Troponin I 0.033 (0.000-0.034) ng/mL Coagulation 03/06/21 Range/Units 15:03 PT 9.8 (9.0-12.0) sec APTT 22.6 (22.0-30.0) sec CBC 03/06/21 Range/Units 15:03 WBC 7.0 (3.8-10.6) k/uL RBC 4.78 (3.80-5.40) m/uL Hgb 13.8 (11.4-16.0) gm/dL Hct 40.5 (34.0-46.0) % Plt Count 220 (150-450) k/uL Comprehensive Metabolic Panel 03/06/21 Range/Units 15:03 Sodium 135 L (137-145) mmol/L Potassium 3.9 (3.5-5.1) mmol/L Chloride 102 (98-107) mmol/L Carbon Dioxide 22 (22-30) mmol/L BUN 14 (7-17) mg/dL Creatinine 1.09 H (0.52-1.04) mg/dL Glucose 108 H (74-99) mg/dL Calcium 9.7 (8.4-10.2) mg/dL AST 23 (14-36) U/L ALT 13 (4-34) U/L Alkaline Phosphatase 71 (38-126) U/L Total Protein 7.3 (6.3-8.2) g/dL Albumin 4.6 (3.5-5.0) g/dL Current Medications Generic Name Dose Route Start Last Admin Trade Name Freq PRN Reason Stop Dose Admin Acetaminophen 650 mg 03/06/21 20:04 Acetaminophen Tab 325 Mg Tab PO Q6HR PRN Fever and/ or Mild Pain Hydrocodone Bitart/Acetaminophen 1 each 03/06/21 20:04 Hydrocodone/Apap 10-325mg 1 Each Tab PO QID PRN Pain Amlodipine Besylate 5 mg 03/06/21 21:00 03/06/21 21:47 Amlodipine 5 Mg Tab PO 5 mg HS MARCI Administration Aspirin 81 mg 03/07/21 09:00 Aspirin 81 Mg PO DAILY [facility] Famotidine 40 mg 03/06/21 21:00 03/06/21 21:47 Famotidine 20 Mg Tab PO 40 mg HS MARCI Administration Furosemide 20 mg 03/07/21 09:00 Furosemide 20 Mg Tab PO DAILY [facility] Isosorbide Mononitrate 30 mg 03/07/21 09:00 Isosorbide Mononitrate Er 30 Mg Tab.Er.24h PO DAILY [facility] Lactic Acid 1 applic 03/07/21 09:00 Ammonium Lactate 12% Cream 140 Gm Tube TOPICAL DAILY [facility] Protocol Linagliptin 5 mg 03/07/21 09:00 Linagliptin 5 Mg Tablet PO DAILY [facility] Losartan Potassium 50 mg 03/07/21 09:00 Losartan 50 Mg Tab PO DAILY [facility] Metformin HCl 500 mg 03/06/21 21:00 03/06/21 21:47 Metformin 500 Mg Tab PO Not Given AC-BID [facility] Nitroglycerin 0.4 mg 03/06/21 20:04 Nitroglycerin Sl Tabs 0.4 Mg Tab SUBLINGUAL Q5M PRN Chest Pain Pantoprazole Sodium 40 mg 03/07/21 07:30 Pantoprazole 40 Mg Tablet PO AC-BRKFST [facility] Potassium Chloride 20 meq 03/07/21 09:00 Potassium Chloride Er 20 Meq Tab.Er PO DAILY [facility] Pravastatin Sodium 40 mg 03/06/21 21:00 03/06/21 21:47 Pravastatin Sodium 40 Mg Tab PO 40 mg HS [facility] Administration Intake and Output 03/06/21 03/07/21 03/07/21 22:59 06:59 14:59 Other: Voiding Method Toilet Toilet # Voids 1 2 Weight 50.802 kg 03/06/21 15:03 03/06/21 15:03
--- NOTE | 2021-03-07 11:38 | ECHOF ---
Referral Reason:cp MEASUREMENTS -------- HEIGHT: 157.5 cm WEIGHT: 50.8 kg BP: 136/74 RVIDd: 3.0 cm (< 3.3) IVSd: 1.1 cm (0.6 - 1.1) LVIDd: 3.8 cm (3.9 - 5.3) LVPWd: 1.1 cm (0.6 - 1.1) IVSs: 1.3 cm LVIDs: 2.7 cm LVPWs: 1.7 cm LAESV Index (A-L): 19.97 ml/m Ao Diam: 2.3 cm (2.0 - 3.7) AV Cusp: 1.0 cm (1.5 - 2.6) MV EXCURSION: 17.701 mm (> 18.000) MV EF SLOPE: 94 mm/s (70 - 150) EPSS: 0.4 cm MV E Gian: 0.79 m/s MV DecT: 256 ms MV A Gian: 1.13 m/s MV E/A Ratio: 0.70 RAP: 5.00 mmHg RVSP: 37.35 mmHg FINDINGS -------- Sinus rhythm. This was a technically adequate study. The left ventricular size is normal. There is borderline concentric left ventricular hypertrophy. Overall left ventricular systolic function is normal with, an EF between 55 - 60 %. The diastolic filling pattern is normal for the age of the patient 13.81. The right ventricle is normal in size. Normal LA size by volume 22+/-6 ml/m2. The right atrial size is normal. Interatrial and interventricular septum intact. The aortic valve is trileaflet and appears structurally normal. There is mild aortic valve sclerosi s. Trace amount of aortic regurgitation. There is no evidence of aortic stenosis. No mitral regurgitation. Mild tricuspid regurgitation present. There is borderline pulmonary hypertension. The right ventr icular systolic pressure, as measured by Doppler, is 37.35mmHg. Trace/mild (physiologic) pulmonic regurgitation. The aortic root size is normal. IVC Not well visulized. There is no pericardial effusion. CONCLUSIONS -------- 1. The left ventricular size is normal. 2. There is borderline concentric left ventricular hypertrophy. 3. Overall left ventricular systolic function is normal with, an EF between 55 - 60 %. 4. The diastolic filling pattern is normal for the age of the patient 13.81 5. There is mild aortic valve sclerosis. 6. Trace amount of aortic regurgitation. 7. Mild tricuspid regurgitation present. 8. There is borderline pulmonary hypertension. 9. The right ventricular systolic pressure, as measured by Doppler, is 37.35mmHg. 10. Trace/mild (physiologic) pulmonic regurgitation. NOISE TESTER: Dayana Balderas RDCS
[2021-03-07 19:36] LABS: Chol/HDL Ratio 2.51; LDL Cholesterol,Calculated 76.8 mg/dL (0.0-131.0); VLDL Calculation 18.2 mg/dL (5.00-40.00)
--- NOTE | 2021-03-08 00:13 | P.DS ---
Providers Date of admission: 03/06/21 16:40 Expected date of discharge: 03/07/21 Attending physician: Jennifer Mullins Consults: 03/06/21 16:40 Consult Physician Urgent Consulting Provider: [facility] Consult Reason/Comments: Chest pain Do you want consulting provider notified?: Yes Primary care physician: Sarah Pace Hospital Course: Final Diagnosis Chest pain, possible unstable angina Chronic Obstructive Pulmonary disease Diabetes mellitus type 2 Hypertension Hyperlipidemia HIstroy of DJD Adenoidectomy Appendectomy History of hysterectomy hyponatremia, mild Elevated random glucose Full code Discharge disposition Patient is being discharged in a stable condition with guarded prognosis to home. Patient will follow-up with Dr Pace in the outpatient setting upon discharge. Patient to continue with outpatient stress testing as scheduled in one week. Total time taken is greater than 35 minutes. Hospital course This is a 66 year old female who was admitted with chest and was being closely monitored. Patient was evaluated by cardiology as initial troponin was negative and second one mildly elevated and third troponin was negative. Patient also underwent 2D echo showing LV systolic function normal with an EF of 55-60%. Patient to keep scheduled stress test outpatient this week. Currently no reports of chest pain, shortness of breath, or palpitations. Patient is afebrile. No reports of nausea or vomiting and patient is tolerating diet. Patient anxious to leave and did not wait for discharge paperwork and a copy of this dictation will be sent to primary care provider. On exam vital signs are stable. Cardio S1, S2 are muffled. Respiratory system shows diminished breath sounds at the bases with no wheezing or rhonchi noted. Abdomen is soft and nontender. Nervous system shows no focal deficits. Please refer to medication reconciliation sheet for a list of medications. Plan - Discharge Summary Discharge Rx Participant: No New Discharge Prescriptions: Continue Potassium Chloride ER [K-Dur 20] 20 meq PO DAILY Furosemide [Lasix] 20 mg PO DAILY Aspirin EC [Ecotrin Low Dose] 81 mg PO DAILY metFORMIN HCL [Glucophage] 500 mg PO BID Pravastatin Sodium [Pravachol] 40 mg PO HS Linagliptin [Tradjenta] 5 mg PO DAILY amLODIPine [Norvasc] 5 mg PO HS Ammonium Lactate Cream [Lac-Hydrin 12% Cream] 1 applic TOPICAL DAILY HYDROcodone/APAP 10-325MG [[place] 10-325] 1 tab PO QID PRN PRN Reason: Pain Isosorbide Mononitrate ER [Imdur] 30 mg PO DAILY Losartan Potassium 50 mg PO DAILY Nitroglycerin Sl Tabs [Nitrostat] 0.4 mg SUBLINGUAL Q5M PRN PRN Reason: Chest Pain Esomeprazole Magnesium [NexIUM] 40 mg PO DAILY Famotidine [Pepcid] 40 mg PO HS Discharge Medication List Aspirin EC [Ecotrin Low Dose] 81 mg PO DAILY 09/08/19 [History] Furosemide [Lasix] 20 mg PO DAILY 09/08/19 [History] Linagliptin [Tradjenta] 5 mg PO DAILY 09/08/19 [History] Potassium Chloride ER [K-Dur 20] 20 meq PO DAILY 09/08/19 [History] Pravastatin Sodium [Pravachol] 40 mg PO HS 09/08/19 [History] metFORMIN HCL [Glucophage] 500 mg PO BID 09/08/19 [History] Ammonium Lactate Cream [Lac-Hydrin 12% Cream] 1 applic TOPICAL DAILY 03/06/21 [History] Esomeprazole Magnesium [NexIUM] 40 mg PO DAILY 03/06/21 [History] Famotidine [Pepcid] 40 mg PO HS 03/06/21 [History] HYDROcodone/APAP 10-325MG [[place] 10-325] 1 tab PO QID PRN 03/06/21 [History] Isosorbide Mononitrate ER [Imdur] 30 mg PO DAILY 03/06/21 [History] Losartan Potassium 50 mg PO DAILY 03/06/21 [History] Nitroglycerin Sl Tabs [Nitrostat] 0.4 mg SUBLINGUAL Q5M PRN 03/06/21 [History] amLODIPine [Norvasc] 5 mg PO HS 03/06/21 [History] Follow up Appointment(s)/Referral(s): Sarah Pace MD [Primary Care Provider] - 1-2 days Gonzales Delgado MD [STAFF PHYSICIAN] - 1 Week Patient Instructions/Handouts: Chest Pain (DC) Discharge Disposition: HOME SELF-CARE
== END 2021-03-07 11:30 | disposition home or self-care (01) ==
LOC: EC 14:33 → 6NMEDSUR 16:40
PROVIDERS: ADMIT Internal Medicine; ATTEND Internal Medicine
DX: R07.89 Other chest pain (principal); N17.9 Acute kidney failure, unspecified; I10 Essential (primary) hypertension; J44.9 Chronic obstructive pulmonary disease, unspecified; E87.1 Hypo-osmolality and hyponatremia; E78.5 Hyperlipidemia, unspecified; E11.9 Type 2 diabetes mellitus without complications; E78.00 Pure hypercholesterolemia, unspecified; M19.90 Unspecified osteoarthritis, unspecified site; R51.9 Headache, unspecified; F17.200 Nicotine dependence, unspecified, uncomplicated; I25.2 Old myocardial infarction; Z20.822 Contact with and (suspected) exposure to COVID-19; Z79.84 Long term (current) use of oral hypoglycemic drugs; Z79.899 Other long term (current) drug therapy; Z79.82 Long term (current) use of aspirin; Z90.710 Acquired absence of both cervix and uterus; Z90.49 Acquired absence of other specified parts of digestive tract; Z98.890 Other specified postprocedural states; Z88.1 Allergy status to other antibiotic agents; Z88.8 Allergy status to other drugs, medicaments and biological substances; Z91.048 Other nonmedicinal substance allergy status; Z80.3 Family history of malignant neoplasm of breast; Z80.8 Family history of malignant neoplasm of other organs or systems
CPT/HCPCS: 99285; 36415; 93005; 93306; 80061; 80053; 80048; 83735; 84484 ×2; 85025; 85610; 85730; 87635; 71046; 70450; G0378 ×2

== ENCOUNTER → 2021-03-21 | Outpatient (CLI) | payer MEDICARE ==
--- NOTE | 2021-03-21 12:55 | US ---
EXAMINATION TYPE: US kidneys/renal and bladder DATE OF EXAM: 03/21/2021 COMPARISON: 08/13/2020 CLINICAL HISTORY: R94.8 Abn results functions studies, R94.4 Abn kid. EXAM MEASUREMENTS: Right Kidney: 11.3 x 4.0 x 4.8 cm Left Kidney: 10.0 x 4.5 x 4.5 cm Right Kidney: No hydronephrosis or masses seen Left Kidney: No hydronephrosis or masses seen Bladder: wnl Bilateral Jets seen: Yes IMPRESSION: 1. Normal renal ultrasound
--- NOTE | 2021-03-21 13:23 | US ---
EXAMINATION TYPE: US thyroid st tissue head/neck DATE OF EXAM: 03/21/2021 COMPARISON: NONE CLINICAL HISTORY: R94.8 Abn results functions studies, R94.4 Abn kid. GLAND SIZE: Right Lobe: 4.6 x 1.8 x 1.4 cm Overall Parenchyma: homogenous Left Lobe: 3.6 x 1.2 x 1.2 cm Overall Parenchyma: homogeneous Isthmus Thickness: 0.3 cm NODULES RIGHT: # of nodules measured on right: 2 1. 1.2 X 0.6 x 0.9 cm, upper mid, mixed cystic and solid, hypoechoic nodule, which is wider than ta ll, with smooth margins, without echogenic foci. Tear 3 Prior size: no prioir 2. 0.8 X 0.5 x 0.7 cm, lower mid, cystic or almost completely cystic, nodule, which is wider than t all, with smooth margins, without echogenic foci. Prior size: no prior LEFT: # of nodules measured on left: 0 ISTHMUS: # of nodules measured in the isthmus: 0 Bilateral neck scanned, no evidence of lymphadenopathy. IMPRESSION: Mildly suspicious right lobe thyroid nodule, consider follow-up. 2017 ACR TI-RADS LEVEL: TR-RADS 3 - Mildly Suspicious: Follow if > 1.5 cm, FNA if > 2.5 cm *Highest TI-RADS level nodule reported
== END | disposition home or self-care (01) ==
LOC: RADUSWWP 12:07
PROVIDERS: ATTEND Family Medicine
DX: E04.1 Nontoxic single thyroid nodule (principal); R94.8 Abnormal results of function studies of other organs and systems
CPT/HCPCS: 76536; 76770

== ENCOUNTER → 2021-05-28 | Outpatient (CLI) | payer MEDICARE ==
--- NOTE | 2021-05-28 16:19 | BD ---
EXAMINATION TYPE: Axial Bone Density DATE OF EXAM: 05/28/2021 COMPARISON: NONE CLINICAL HISTORY: Height: 63 Weight: 118.3 FRAX RISK QUESTIONS: Alcohol (3 or more units per day): no Family History (Parent hip fracture): no Glucocorticoids (More than 3mos): no (Ex: prednisone, prednisolone, methylprednisolone, dexamethasone, and hydrocortisone). History of Fracture in Adulthood: yes Secondary Osteoporosis: 1. Type 1 Diabetes: no 2. Hyperthyroidism: no 3. Menopause before 45: yes 4. Malnutrition: no 5. Chronic liver disease: no Rheumatoid Arthritis: no Current Tobacco Use: yes RISK FACTORS HISTORY OF: Spine Fracture: yes When: pt unsure Surgery to Spine/Hip(right/left)/Wrist (right/left): no Family History of Osteoporosis: no Active: yes Diet low in dairy products/other sources of calcium: yes Postmenopausal woman: yes Lost more than 2 inches in height since high school: no MEDICATIONS: diabetic meds, pravastatin, pepcid, blood pressure meds Additional History: EXAM MEASUREMENTS: Bone mineral densitometry was performed using the [employer] System. Bone mineral density about the R hip (g/cm2): 0.786 Bone mineral density about the L hip (g/cm2): 0.769 T Score values are as follows: -----R Neck: -1.8 -----L Neck: -1.9 -----R Total: -2.0 -----L Total: -1.9 Bone mineral density : baseline Bone mineral density about the L Wrist (g/cm2): 0.502 T Score values are as follows: -----Dist. R+U: -2.3 -----Prox. R+U: -2.4 -----Radius total: -2.9 Bone mineral density : baseline IMPRESSION: Osteopenia (T Score between -2.5 and -1). There is slightly increased risk of fracture and the patient may be considered for treatment. Re-Screen 2-5 years. NOTE: T-SCORE=SD OF THE YOUNG ADULT MEAN.
--- NOTE | 2021-06-02 14:45 | MM ---
Reason for exam: screening (asymptomatic). Last mammogram was performed 2 years and 6 months ago. History: Family history of breast cancer in father at age 45, breast cancer in brother at age 37, and breast cancer in sister at age 40. Physical Findings: A clinical breast exam by your physician is recommended on an annual basis and results should be correlated with mammographic findings. MG 3D Screening Mammo W/Cad Bilateral CC and MLO view(s) were taken. Prior study comparison: November 11, 2018, mammogram, performed at [place]. December 08, 2012, mammogram, performed at [facility]. There are scattered fibroglandular densities. No significant changes when compared with prior studies. ASSESSMENT: Benign, BI-RAD 2 RECOMMENDATION: Routine screening mammogram of both breasts in 1 year.
== END | disposition home or self-care (01) ==
LOC: RADMAMWWP 12:06
PROVIDERS: ATTEND Family Medicine
DX: Z12.31 Encounter for screening mammogram for malignant neoplasm of breast (principal); M81.0 Age-related osteoporosis without current pathological fracture; M85.89 Other specified disorders of bone density and structure, multiple sites; Z80.3 Family history of malignant neoplasm of breast
CPT/HCPCS: 77063; 77067; 77080

== ENCOUNTER 2022-01-10 09:05 | Emergency (ER) | payer MEDICARE ==
[2022-01-10 09:11] VITALS: RESP 18; TEMP 97.8
--- NOTE | 2022-01-10 09:23 | ED ---
Upper Extremity HPI - General Chief Complaint: Extremity Injury, Upper Stated Complaint: Fall, Wrist pain Time Seen by Provider: 01/10/22 09:07 Source: patient Mode of arrival: wheelchair Limitations: no limitations - History of Present Illness Initial Comments: 66-year-old female who states she fell about one half weeks ago going down some steps she injured her right wrist. She states she's had pain in that area since then she saw her doctor this past week who apparently x-rayed it and did not find any acute fractures however there is evidence of soft tissue injury. Patient complains of increased pain he points to the distal lateral wrist at the base of the thumb. She states it hurts to try to move it she is dominant right- handed. No other complaints of any other injury at this time. She had a splint was tight she now has a Velcro splint. No other complaints modifying factors at this time MD Complaint: Injury to:: right, wrist - Related Data Home Medications Medication Instructions Recorded Confirmed Aspirin EC [Ecotrin Low Dose] 81 mg PO DAILY 09/08/19 03/06/21 Furosemide [Lasix] 20 mg PO DAILY 09/08/19 03/06/21 Linagliptin [Tradjenta] 5 mg PO DAILY 09/08/19 03/06/21 Potassium Chloride ER [K-Dur 20] 20 meq PO DAILY 09/08/19 03/06/21 Pravastatin Sodium [Pravachol] 40 mg PO HS 09/08/19 03/06/21 metFORMIN HCL [Glucophage] 500 mg PO BID 09/08/19 03/06/21 Ammonium Lactate Cream [Lac-Hydrin 1 applic TOPICAL DAILY 03/06/21 03/06/21 12% Cream] Esomeprazole Magnesium [NexIUM] 40 mg PO DAILY 03/06/21 03/06/21 Famotidine [Pepcid] 40 mg PO HS 03/06/21 03/06/21 HYDROcodone/APAP 10-325MG [[place] 1 tab PO QID PRN 03/06/21 03/06/21 10-325] Isosorbide Mononitrate ER [Imdur] 30 mg PO DAILY 03/06/21 03/06/21 Losartan Potassium 50 mg PO DAILY 03/06/21 03/06/21 Nitroglycerin Sl Tabs [Nitrostat] 0.4 mg SUBLINGUAL Q5M PRN 03/06/21 03/06/21 amLODIPine [Norvasc] 5 mg PO HS 03/06/21 03/06/21 Previous Rx's Medication Instructions Recorded HYDROcodone/APAP 5-325MG [[place] 1 tab PO Q6HR PRN 3 Days #12 tab 01/10/22 5-325] predniSONE [Deltasone] 20 mg PO BID #10 tab 01/10/22 Allergies Allergy/AdvReac Type Severity Reaction Status Date / Time cefaclor [From Ceclor] Allergy Unknown Verified 01/10/22 09:11 hydrogen peroxide Allergy Rash/Hives Verified 01/10/22 09:11 hydroxyzine [From Vistaril] Allergy Anaphylaxis Verified 01/10/22 09:11 terbinafine [From Lamisil] Allergy Anaphylaxis Verified 01/10/22 09:11 Review of Systems ROS Statement: Those systems with pertinent positive or pertinent negative responses have been documented in the HPI. ROS Other: All systems not noted in ROS Statement are negative. Past Medical History Past Medical History: COPD, Diabetes Mellitus, Hyperlipidemia, Hypertension, Myocardial Infarction ([place]) Additional Past Medical History / Comment(s): pt states "i've had 2 heart attacks" hx 2004 Last Myocardial Infarction Date:: 2004 History of Any Multi-Drug Resistant Organisms: None Reported Past Surgical History: Adenoidectomy, Appendectomy, Hysterectomy, Orthopedic Surgery, Tonsillectomy Additional Past Surgical History / Comment(s): bilateral feet Additional Past Anesthesia/Blood Transfusion Reaction / Comment(s): never had Past Psychological History: No Psychological Hx Reported Smoking Status: Never smoker Past Alcohol Use History: Occasional Past Drug Use History: None Reported - Past Family History Brother(s) Family Medical History: Cancer Additional Family Medical History / Comment(s): breast/thryroid cancer General Exam - General Exam Comments Initial Comments: This is a well-developed frail-appearing female who is awake alert oriented 4 with a Madeleine Coma Scale of 15 Limitations: no limitations General appearance: alert, anxious Head exam: Present: atraumatic, normocephalic, normal inspection Eye exam: Present: normal appearance, PERRL, EOMI. Absent: scleral icterus, conjunctival injection, periorbital swelling Neck exam: Present: normal inspection, full ROM Extremities exam: Present: tenderness, normal capillary refill, other (Examination right upper extremity demonstrates tenderness palpation of the distal lateral wrist at the distal end of the anatomical snuffbox especially. Decreased range of motion secondary to pain. Some localized bruising over the same area noted. No pain to palpation of the fingers or hand or d ). Absent: full ROM Neurological exam: Present: alert, oriented X3, CN II-XII intact Psychiatric exam: Present: anxious Skin exam: Present: warm, dry, intact, other (As noted above) Course Vital Signs 01/10/22 09:06 Temperature 97.8 F Pulse Rate 89 Respiratory 18 Rate Blood Pressure 185/92 O2 Sat by Pulse 96 Oximetry Medical Decision Making - Medical Decision Making I did have a long discussion with patient regarding the findings patient does demonstrate evidence of likely wrist sprain though an occult fracture is not ruled out. Patient will be discharged with instructions for anti-inflammatories as well as pain medication elevation warm compresses orthopedic referral. The patient's request Dr. Restrepo. - Radiology Data Radiology results: report reviewed (Imaging reviewed as well as reports no acute findings), image reviewed Disposition Clinical Impression: Right wrist sprain Disposition: HOME SELF-CARE Condition: Good Instructions (If sedation given, give patient instructions): Wrist Injury (ED) Additional Instructions: Elevation, continue with your splint Prescriptions: predniSONE [Deltasone] 20 mg PO BID #10 tab HYDROcodone/APAP 5-325MG [[place] 5-325] 1 tab PO Q6HR PRN 3 Days #12 tab PRN Reason: Pain Is patient prescribed a controlled substance at d/c from ED?: Yes When asked, does pt state using other controlled substances?: No If prescribed controlled substance>3 days was MAPS reviewed?: Prescribed <3 Days If opioid is for acute pain is fill amount 7 days or less?: Yes If Rx opioid, was Start Talking consent form obtained?: Yes Referrals: Sarah Pace MD [Primary Care Provider] - 1-2 days Best Restrepo DO [Doctor of Osteopathic Medicine] - 1-2 days Decision Date: 01/10/22 Decision Time: 10:48
--- NOTE | 2022-01-10 09:38 | XR ---
EXAMINATION TYPE: XR wrist complete RT DATE OF EXAM: 01/10/2022 9:25 AM INDICATION: Patient age:Female; 66 years old; Reason for study: Trauma; COMPARISON: None TECHNIQUE: 4 views of the right wrist. Frontal, navicular, lateral, and oblique. FINDINGS: No acute osseous pathology, joint dislocation, or joint effusion. No evidence of any soft tissue swelling is seen. IMPRESSION: No acute osseous pathology.
[2022-01-10] MEDS: IBUPROFEN 200 MG TAB PO STA ×2 (09:50→09:53)
[2022-01-10] MEDS ORDERED: HYDROcodone/APAP 5-325MG 1 EACH TAB PO STA (10:50)
[2022-01-10 11:21] VITALS: BP 140/83; PULSE 77
== END 2022-01-10 11:20 | disposition home or self-care (01) ==
LOC: EC 09:05
DX: S63.501A Unspecified sprain of right wrist, initial encounter (principal); J44.9 Chronic obstructive pulmonary disease, unspecified; E11.9 Type 2 diabetes mellitus without complications; I10 Essential (primary) hypertension; I25.2 Old myocardial infarction; E78.5 Hyperlipidemia, unspecified; Z88.1 Allergy status to other antibiotic agents; Z88.8 Allergy status to other drugs, medicaments and biological substances; Z79.82 Long term (current) use of aspirin; Z79.84 Long term (current) use of oral hypoglycemic drugs; Z79.899 Other long term (current) drug therapy; X50.9XXA Other and unspecified overexertion or strenuous movements or postures, initial encounter
CPT/HCPCS: 99283

== ENCOUNTER 2022-05-13 09:23 | Day surgery (SDC) | payer MEDICARE ==
--- NOTE | 2022-05-12 10:04 | P.HPOR ---
History of Present Illness H&P Date: 05/12/22 Chief Complaint: Right DeQuervains tenosynovitis Subjective: This is a 66 year old female that presents today for follow up evaluation regarding right radial sided wrist pain. She has had several incidences of falling down stairs at her house causing wrist pain. She denies any paresthesias or bruising or any other areas of pain and has not tried anything for her symptoms. She received an injection at her prior visit several months ago but noticed little relief and states her brace makes her symptoms worse. Physical Examination: RUE: AIN/PIN/Radial/Ulnar/Median motor intact. Radial/Ulnar/Median SILT. 2+/4 Radial/Ulnar pulses palpated. 5/5 APB, 5/5 FDI. Positive Finkelsteins, negative CMC grind, negative Durkan's compression. Impression: 1.) Right wrist DeQuervains tenosynovitis Plan: Diagnosis and treatment options were discussed with the patient. She would like to proceed with right first dorsal compartment release after having failed conservative treatment for her DeQuervains tenosynovitis. Risks and benefits of surgery including bleeding, infection, damage to surrounding tissue, need for further surgery, residual numbness were discussed and the patient wished to go forward with surgery. Rubio Trotter DO Orthopedic Hand/Upper Extremity Surgeon Past Medical History Past Medical History: Coronary Artery Disease (CAD), COPD, Diabetes Mellitus, GERD/Reflux, Hyperlipidemia, Hypertension, Myocardial Infarction ([place]), Renal Disease Additional Past Medical History / Comment(s): pt states "i've had 2 heart attacks" hx 2004, will see kidney Dr due to low functioning. nodules on thyroid. thin skin bruises easily. enviromental allergies. Fx spine DDD Last Myocardial Infarction Date:: 2004 History of Any Multi-Drug Resistant Organisms: None Reported Past Surgical History: Adenoidectomy, Appendectomy, Hysterectomy, Orthopedic Surgery, Tonsillectomy Additional Past Surgical History / Comment(s): bilateral feet bunion. removal of nodules on thyroid, rt foot hammer toe repair. biopsy on stomach for h -pylori Past Anesthesia/Blood Transfusion Reactions: No Reported Reaction Additional Past Anesthesia/Blood Transfusion Reaction / Comment(s): no blood transfusion Smoking Status: Current every day smoker - Past Family History Brother(s) Family Medical History: Cancer Additional Family Medical History / Comment(s): thryroid cancer Sister(s) Family Medical History: Cancer, Deep Vein Thrombosis (DVT) Additional Family Medical History / Comment(s): thyroid cancer and breast Father Family Medical History: Cancer Additional Family Medical History / Comment(s): breast, Medications and Allergies Home Medications Medication Instructions Recorded Confirmed Type Aspirin EC [Ecotrin Low Dose] 81 mg PO DAILY 09/08/19 05/12/22 History Furosemide [Lasix] 20 mg PO DAILY 09/08/19 05/12/22 History Potassium Chloride ER [K-Dur 20] 20 meq PO DAILY 09/08/19 05/12/22 History Pravastatin Sodium [Pravachol] 40 mg PO HS 09/08/19 05/12/22 History metFORMIN HCL [Glucophage] 500 mg PO DAILY 09/08/19 05/12/22 History Esomeprazole Magnesium [NexIUM] 40 mg PO DAILY 03/06/21 05/12/22 History Famotidine [Pepcid] 40 mg PO HS 03/06/21 05/12/22 History HYDROcodone/APAP 10-325MG [[place] 1 tab PO QID PRN 03/06/21 05/12/22 History 10-325] Isosorbide Mononitrate ER [Imdur] 30 mg PO DAILY 03/06/21 05/12/22 History Losartan Potassium 50 mg PO DAILY 03/06/21 05/12/22 History Nitroglycerin Sl Tabs [Nitrostat] 0.4 mg SUBLINGUAL Q5M PRN 03/06/21 05/12/22 History amLODIPine [Norvasc] 5 mg PO BID 03/06/21 05/12/22 History Metoprolol Succinate [[place] 25 mg PO HS 05/12/22 05/12/22 History Sprinkle] Allergies Allergy/AdvReac Type Severity Reaction Status Date / Time cefaclor [From Ceclor] Allergy Rash/Hives Verified 05/12/22 08:18 hydrogen peroxide Allergy Rash/Hives Verified 05/12/22 08:18 hydroxyzine [From Vistaril] Allergy Anaphylaxis Verified 05/12/22 08:18 terbinafine [From Lamisil] Allergy Anaphylaxis Verified 05/12/22 08:18 Physical Examination Osteopathic Statement: *. No significant issues noted on an osteopathic structural exam other than those noted in the History and Physical/Consult.
[~2022-05-13 09:23] MED LIST: DEXAMETHASONE SOD PHOSPHATE 4 MG/ML 1 ML VIAL IV ONE; HYDROmorphone 0.5 MG/0.5 ML SYRINGE IVP PRN; LACTATED RINGERS 1,000 ML IV SCH; MIDAZOLAM 2 MG/2 ML VIAL IV PRN; ONDANSETRON 4 MG/2 ML VIAL IVP ONE; Pre Op ABX Message 1 EACH MISC MISCELLANE ONE
[2022-05-13 09:56] VITALS: RESP 16; TEMP 98
[2022-05-13 10:08] LABS: Glucose,Whole Blood 133 mg/dL (70-110)
[2022-05-13] MEDS ORDERED: LIDOCAINE 1% INJ 10MG/ML (20 ML MDV) SQ ONE (11:16)
[2022-05-13] MEDS ORDERED: BUPIVACAINE (PF) 0.5% 30 ML VIAL SQ ONE (11:16)
[2022-05-13] MEDS ORDERED: fentaNYL (PF) 50 MCG/ML 2 ML AMP ONE (11:32)
[2022-05-13] MEDS ORDERED: MIDAZOLAM 2 MG/2 ML VIAL ONE (11:32)
[2022-05-13] MEDS ORDERED: PROPOFOL 10 MG/ML 20 ML VIAL IV ONE (11:32)
--- NOTE | 2022-05-13 12:04 | P.OP ---
Date of Procedure: 05/13/22 Preoperative Diagnosis: 1.) Right DeQuervain's tenosynovitis Postoperative Diagnosis: 1.) Right DeQuervain's tenosynovitis Procedure(s) Performed: 1.) Right first dorsal compartment release Anesthesia: MAC Surgeon: Rubio Trotter Estimated Blood Loss (ml): 0 Pathology: none sent Condition: stable Disposition: PACU Description of Procedure: This is a 67 year old female who presents today for a right first dorsal compartment release after having failed conservative treatment. Risks and benefits of surgery were discussed with the patient including bleeding, damage to surrounding tissue, infection, need for further surgery as well as risks of anesthesia including pulmonary embolism and even and the patient wished to proceed with surgical intervention. The patients was seen in the pre-operative area by myself. Consent and H&P were completed and updated. The correct extr emity was marked in the pre-operative area by myself and all other questions were answered. Operative Narrative: The patient was brought to the operating room by the department of anesthesia. They remained on the portable stretcher and a rolling hand table was brought to the side of the operative extremity. The patient was then drifted off to sleep by the department of anesthesia. A nonsterile tourniquet was then applied to the operative extremity and the right upper extremity was then prepped and draped in normal sterile fashion. Pre-operative time out was perform ed indicating the correct patient, procedure and laterality. All in the room agreed. MAC anesthesia was utilized and a 50:50 mixture of 1% Lidocaine and 0.5% bupivacaine was injected into the subcutaneous tissues of the radial wrist skin, 8ccs total. Pre-operative antibiotics were given prior to skin incision. The operative extremity was the exsanguinated with an esmarch bandage and the tourniquet was inflated to 250mmHg. 15 blade scalpel was used to make a horizontal skin incision centered over the first dorsal compartment of the right wrist. Blunt dissection was taken down to the proximal edge of the first dorsal compartment while taking care to identify and protect branches of the superficial radial sensory nerve. The first dorsal compartment was released in its entirety from proximal to distal. APL and EPB tendons were identified and the EPB tendon had a seperate compartment that was released in it's entirety. Skin closure was performed with 4-0 nylon suture. Sterile soft dressing was applied consisting of 4x4's cast padding and an alona wrap. Tourniquet was let down and the hand had immediate perfusion. The patient was then woken by the department of anesthesia and transferred to PACU in stable condition. Rubio Trotter D.O. Orthopedic Hand/Upper Extremity Surgeon
[2022-05-13 12:17] VITALS: BP 130/64; PULSE 80
== END 2022-05-13 13:00 | disposition home or self-care (01) ==
LOC: OR 09:23
PROVIDERS: ATTEND Orthopaedic Surgery Hand Surgery
DX: M65.4 Radial styloid tenosynovitis [de Quervain] (principal); I25.10 Atherosclerotic heart disease of native coronary artery without angina pectoris; J44.9 Chronic obstructive pulmonary disease, unspecified; E11.9 Type 2 diabetes mellitus without complications; K21.9 Gastro-esophageal reflux disease without esophagitis; E78.5 Hyperlipidemia, unspecified; I10 Essential (primary) hypertension; I25.2 Old myocardial infarction; N28.9 Disorder of kidney and ureter, unspecified; F17.200 Nicotine dependence, unspecified, uncomplicated; Z90.89 Acquired absence of other organs; Z90.49 Acquired absence of other specified parts of digestive tract; Z90.710 Acquired absence of both cervix and uterus; Z98.890 Other specified postprocedural states; Z80.8 Family history of malignant neoplasm of other organs or systems; Z80.3 Family history of malignant neoplasm of breast; Z83.2 Family history of diseases of the blood and blood-forming organs and certain disorders involving the immune mechanism; Z79.82 Long term (current) use of aspirin; Z79.84 Long term (current) use of oral hypoglycemic drugs; Z79.899 Other long term (current) drug therapy; Z88.1 Allergy status to other antibiotic agents; Z88.3 Allergy status to other anti-infective agents
CPT/HCPCS: 25000; J2250; J1100; J2405; J2001; J3010; J2704

== ENCOUNTER → 2022-09-21 | Outpatient (CLI) | payer MEDICARE ==
[2022-09-21 15:31] LABS: Basophils # (A) 0.09 X 10*3/uL (0.00-0.10); Basophils % (A) 1.1 %; Eosinophils # (A) 0.27 X 10*3/uL (0.04-0.35); Eosinophils % (A) 3.2 %; HCT 46.9 % (37.2-46.3); HGB 15.1 g/dL (12.0-15.0); Immature Grans, Automated 0.2 %; Lymphocytes # (A) 2.41 X 10*3/uL (0.90-5.00); Lymphocytes % (A) 28.4 %; MCHC 32.2 g/dL (32.0-37.0); MCV 93.2 fL (80.0-97.0); Mean Platelet Volume 11.1 fL (9.5-12.2); Monocytes # (A) 0.54 X 10*3/uL (0.20-1.00); Monocytes % (A) 6.4 %; NRBC Per 100 WBC 0 /100 WBCS (0.0-0.0); Neutrophils # (A) 5.15 X 10*3/uL (1.80-7.70); Neutrophils % (A) 60.7 %; Platelet Count 202 X 10*3/uL (140-440); RBC 5.03 X 10*6/uL (4.10-5.20); RDW 12.8 % (11.5-14.5); WBC 8.48 X 10*3/uL (4.50-10.00)
[2022-09-21 16:05] LABS: Ferritin 19.2 ng/mL (10.0-291.0)
[2022-09-21 16:17] LABS: Appearance,Urine Clear (Clear); Bilirubin,Urine Negative (Negative); Blood,Urine Negative (Negative); Color,Urine Yellow (Yellow); Ketones,Urine Negative (Negative); Nitrite,Urine Negative (Negative); PH, Urine 6.5 (5.0-8.0); Specific Gravity,Urine 1.012 (1.001-1.030); Urobilinogen,Urine 0.2 (0.2,1.0)
[2022-09-21 16:35] LABS: % Iron Saturation 19.03 (12.00-45.00); African American GFR (CKD) 42.7 (60.0-200.0); Albumin 4.7 g/dL (3.8-4.9); Albumin/Globulin Ratio 2.33 (1.60-3.17); Anion Gap 17.2 mmol/L (10.00-18.00); BUN/Creat Ratio 11.84 Ratio (12.00-20.00); Blood Urea Nitrogen 17.4 mg/dL (9.0-27.0); Calcium 9.7 mg/dL (8.7-10.3); Carbon Dioxide 20.5 mmol/L (20.0-27.5); Magnesium 2.2 mg/dL (1.5-2.4); Non-African American GFR(CKD) 36.8 (60.0-200.0); Phosphorus 4.1 mg/dL (2.4-5.1); Potassium 4.5 mmol/L (3.5-5.5); Total Bilirubin 0.4 mg/dL (0.30-1.20); Total Protein 6.7 g/dL (6.2-8.2); Uric Acid 3.8 mg/dL (2.9-7.7)
[2022-09-21 19:32] LABS: Urine Creatinine 23.2 mg/dL (28.0-217.0)
== END | disposition home or self-care (01) ==
LOC: LABWHC1 10:04
PROVIDERS: ATTEND Internal Medicine
DX: N25.81 Secondary hyperparathyroidism of renal origin (principal); N18.31 Chronic kidney disease, stage 3a; D63.1 Anemia in chronic kidney disease; N39.0 Urinary tract infection, site not specified; E55.9 Vitamin D deficiency, unspecified; M10.9 Gout, unspecified
CPT/HCPCS: 36415; 80053; 81003; 82043; 82306; 82570; 82728; 83540; 83550; 83735; 83970; 84100; 84550; 85025

== ENCOUNTER → 2022-12-02 | Outpatient (CLI) | payer MEDICARE ==
[2022-12-02 15:00] LABS: Basophils # (A) 0.07 X 10*3/uL (0.00-0.10); Eosinophils % (A) 4.4 %; HCT 44.5 % (37.2-46.3); HGB 14.8 d/dL (12.0-15.0); Lymphocytes # (A) 2.17 X 10*3/uL (0.90-5.00); MCH 30.6 pg (27.0-32.0); MCHC 33.3 d/dL (32.0-37.0); MCV 91.9 FL (80.0-97.0); Mean Platelet Volume 10.5 FL (9.5-12.2); Monocytes # (A) 0.44 X 10*3/uL (0.20-1.00); Monocytes % (A) 6.5 %; NRBC Per 100 WBC 0 X 10*3/uL (0.00-0.01); Neutrophils # (A) 3.79 X 10*3/uL (1.80-7.70); Neutrophils % (A) 55.8 %; Platelet Count 199 X 10*3/uL (140-440); RBC 4.84 X 10*6/uL (4.10-5.20); RDW 12.6 % (11.5-14.5); WBC 6.79 X 10*3/uL (4.50-10.00)
[2022-12-02 22:15] LABS: Erythrocyte Sedimentation Rate <1 mm/Hr (0-30)
== END | disposition home or self-care (01) ==
LOC: LABWHC1 08:54
PROVIDERS: ATTEND Ophthalmology
DX: H34.8312 Tributary (branch) retinal vein occlusion, right eye, stable (principal)
CPT/HCPCS: 36415; 85025; 85652

== ENCOUNTER → 2023-01-18 | Outpatient (CLI) | payer MEDICARE ==
[2023-01-18 15:44] LABS: HGB 15.2 d/dL (12.0-15.0); MCH 30.2 pg (27.0-32.0); MCV 91.3 FL (80.0-97.0); Mean Platelet Volume 11.3 FL (9.5-12.2); NRBC Per 100 WBC 0 X 10*3/uL (0.00-0.01); Platelet Count 180 X 10*3/uL (140-440); RBC 5.04 X 10*6/uL (4.10-5.20); RDW 12.8 % (11.5-14.5); WBC 7.91 X 10*3/uL (4.50-10.00)
[2023-01-18 16:12] LABS: % Iron Saturation 14.98 (12.00-45.00); ALT 20 U/L (8-44); AST 19 U/L (13-35); Albumin 4.9 d/dL (3.8-4.9); Albumin/Globulin Ratio 2.58 Ratio (1.60-3.17); Alkaline Phosphatase 78 U/L (41-126); BUN/Creat Ratio 14.58 Ratio (12.00-20.00); Blood Urea Nitrogen 17.5 mg/dL (9.0-27.0); Calcium 9.9 mg/dL (8.7-10.3); Carbon Dioxide 23.6 mmol/L (21.6-31.8); Chloride 103 mmol/L (96-109); Ferritin 16.3 ng/mL (10.0-291.0); Globulin 1.9 d/dL (1.6-3.3); Glucose 120 mg/dL (70-110); Iron 65 UG/DL (50-170); Sodium 140 mmol/L (135-145); Total Bilirubin 0.4 mg/dL (0.3-1.2); Total Iron Binding Capacity 434 UG/DL (228-460); Total Protein 6.8 d/dL (6.2-8.2)
== END | disposition home or self-care (01) ==
LOC: LABWHC1 09:52
PROVIDERS: ATTEND Internal Medicine Nephrology
DX: N18.31 Chronic kidney disease, stage 3a (principal); D63.1 Anemia in chronic kidney disease; N39.0 Urinary tract infection, site not specified; E55.9 Vitamin D deficiency, unspecified; R80.9 Proteinuria, unspecified
CPT/HCPCS: 36415; 80053; 82306; 82728; 83540; 83550; 85027

== ENCOUNTER → 2023-10-26 | Outpatient (CLI) | payer MEDICARE ==
--- NOTE | 2023-10-26 16:13 | BD ---
EXAMINATION TYPE: Axial Bone Density DATE OF EXAM: 10/26/2023 CLINICAL HISTORY: 68 years old Female. ICD-10 CODE: Z78.0 ASYMPTOMATIC Height: 63" Weight: 117lbs FRAX RISK QUESTIONS: Alcohol (3 or more units per day): No Family History (Parent hip fracture): Unknown Glucocorticoids (More than 3mos): No (Ex: prednisone, prednisolone, methylprednisolone, dexamethasone, and hydrocortisone). History of Fracture in Adulthood: Yes Secondary Osteoporosis: 1. Type 1 Diabetes: No 2. Hyperthyroidism: No 3. Menopause before 45: Yes 4. Malnutrition: No 5. Chronic liver disease: No Rheumatoid Arthritis: Yes Current Tobacco Use: Yes RISK FACTORS HISTORY OF: Hip Fracture (Right/Left): No Spine Fracture: No History of Wrist Fracture: No Surgery to Spine/Hip(right/left)/Wrist (right/left): Right wrist Sx MEDICATIONS: Thyroid Medications: No Osteoporosis Medications: No EXAM MEASUREMENTS: Bone mineral densitometry was performed using the Lemon Curve System. Bone mineral density as measured about the Lumbar spine is: ----- L1-L4(G/cm2): 1.047 T Score Values are as follows: ----- L1: -2.6 ----- L2: -1.2 ----- L3: -0.1 ----- L4: -0.7 ----- L1-L4: -1.1 Z Score Values are as follows: ----- L1: -0.5 ----- L2: 0.8 ----- L3: 1.9 ----- L4: 1.3 ----- L1-L4: 0.9 Bone mineral density about the R hip (g/cm2): 0.701 Bone mineral density about the L hip (g/cm2): 0.773 T Score values are as follows: -----R Neck: -2.0 -----L Neck: -1.7 -----R Total: -2.4 -----L Total: -1.9 Z Score values are as follows: -----R Neck: -0.1 -----L Neck: 0.1 -----R Total: -0.8 -----L Total: -0.2 Bone mineral density has: decreased -3.0% since study of: 05/28/2021 FRAX%s: The graph provided illustrates a 22.0% chance for a major osteoporotic fx and a 6.9% chance f or the hips probability for fx in 10 years time. IMPRESSION: Osteoporosis (T Score less than -2.5). There is increased fracture risk and therapy is usually indicated based on age. Re-Screen 1-2 years. NOTE: T-SCORE=SD OF THE YOUNG ADULT MEAN.
--- NOTE | 2023-10-27 08:35 | MM ---
Reason for Exam: Screening (asymptomatic). Last mammogram was performed 2 year(s) and 5 month(s) ago. Patient History: Menarche at age 14. First Full-Term at age 18. Hysterectomy at age 27. Postmenopausal. Sister had breast cancer, age 40. Brother had breast cancer, age 37. Father had breast cancer, age 45. Risk Values: Krystin 5 year model risk: 8.0%. NCI Lifetime model risk: 24.9%. Prior Study Comparison: 12/08/2012 Screening Mammogram, [facility]. 11/11/2018 Screening Mammogram, [facility]. 05/28/2021 Bilateral Screening Mammogram, [facility]. Tissue Density: The breasts are heterogeneously dense, which may obscure small masses. Findings: Analyzed By CAD. There is no suspicious group of microcalcifications or new suspicious mass in either breast. Benign calcifications. Overall Assessment: Benign, BI-RAD 2 Management: Screening Mammogram of both breasts in 1 year. . Patient should continue monthly self-breast exams. A clinical breast exam by your physician is recommended on an annual basis. This exam should not preclude additional follow-up of suspicious palpable abnormalities. Note on Krystin scores and lifetime risk: 1. A Krystin score greater than 3% is considered moderate risk. If this is the case, consider specialist referral to assess eligibility for a risk reducing agent. 2. If overall lifetime risk for the development of breast cancer is 20% or higher, the patient may qualify for future screening with alternating mammogram and breast MRI. Electronically signed and approved by: Albert Black M.D. Radiologis
== END | disposition home or self-care (01) ==
LOC: RADMAMWWP 08:47
PROVIDERS: ATTEND Family Medicine
DX: Z12.31 Encounter for screening mammogram for malignant neoplasm of breast (principal); M81.0 Age-related osteoporosis without current pathological fracture; M85.89 Other specified disorders of bone density and structure, multiple sites; Z78.0 Asymptomatic menopausal state; Z80.3 Family history of malignant neoplasm of breast
CPT/HCPCS: 77063; 77067; 77080

== ENCOUNTER → 2023-10-27 | Outpatient (CLI) | payer MEDICARE ==
--- NOTE | 2023-11-01 20:55 | CTL ---
EXAMINATION TYPE: CT Low Dose Lung DATE OF EXAM: 10/27/2023 1:55 PM CLINICAL INDICATION:Female, 68 years old with history of Z12.2 Screening Lung Ca F17.210 Nicotine Dep endent; Nicotine Dependent, Screening Lung Cancer , history of tobacco use. COMPARISON: Low-dose lung cancer screening CT 04/09/2020 TECHNIQUE: Multiple axial non-contrast scans were obtained from approximately the lung apices through the upper abdomen. Coronal and sagittal reformatted images were obtained. Low dose technique was uti lized. CT DLP: 46 mGycm, Automated exposure control for dose reduction was used. CT Contrast: Contrast used: None Oral contrast used: None FINDINGS: ======== Lack of intravenous contrast and low dose technique limits the evaluation of the vascular and soft ti ssue structures. LUNGS: No evidence of pulmonary fibrosis. No evidence of focal consolidation, pneumothorax or pleural effusion. Nodules: RUL: Linear, slightly nodular small lesion, 7 mm length, in the right lung apex. RML: None. RLL: None. ABEL: None. LLL: None. AIRWAY: Patent and unremarkable. HEART: Size within normal limits. Moderate calcific coronary artery disease. MEDIASTINUM: No gross evidence of adenopathy. VASCULATURE: No aortic aneurysm. MUSCULOSKELETAL: No acute osseous abnormalities SOFT TISSUES/LYMPH NODES: Unremarkable. LOWER NECK: No significant findings. UPPER ABDOMEN: No significant findings. IMPRESSION: 1. No clinically significant pulmonary nodules. CT LUNG RAD AND CT CHEST RECOMMENDATION: 2-benign. Recommend routine annual follow-up low dose CT sc reening S Modifier (other clinically significant findings): Coronary artery disease. Recommend smoking cessation (if current smoker), or continuation of smoking cessation (if prior smoke r). Annual screening for lung cancer with low-dose computed tomography is recommended in adults ages 55 to 77 years who have a 30 pack-year smoking history and currently smoke or have quit within the pa st 15 years. Screening should be discontinued once a person has not smoked for 15 years or develops a health problem that substantially limits life expectancy or the ability or willingness to have curat coco lung surgery. Lung rads 2021 [email or web address]
== END | disposition home or self-care (01) ==
LOC: RADCTMAIN 11:58
PROVIDERS: ATTEND Family Medicine
DX: Z12.2 Encounter for screening for malignant neoplasm of respiratory organs (principal); I25.10 Atherosclerotic heart disease of native coronary artery without angina pectoris; F17.210 Nicotine dependence, cigarettes, uncomplicated
CPT/HCPCS: 71271

== ENCOUNTER → 2023-10-27 | Outpatient (CLI) | payer MEDICARE ==
--- NOTE | 2023-10-27 12:54 | US ---
EXAMINATION TYPE: US thyroid st tissue head/neck DATE OF EXAM: 10/27/2023 COMPARISON: 03/21/2021 CLINICAL INDICATION: Female, 68 years old with history of E04.2 NONTOXIC MULTINODULAR GOITER; Patient denies any signs or symptoms at this time GLAND SIZE: Right Lobe: 4.7 x 1.4 x 1.5 cm Overall Parenchyma: homogeneous Left Lobe: 3.9 x 1.3 x 1.3 cm Overall Parenchyma: homogeneous Isthmus Thickness: 0.3 cm NODULES RIGHT: # of nodules measured on right: 2 1. 0.8 X 0.6 x 0.5 cm, upper lateral, spongiform, isoechoic nodule, which is taller than wide, with lobulated or irregular margins, without echogenic foci. Previously measure 1.2 x 0.6 x 0.9 cm. TR 4. Prior size: 1.2 x 0.6 x 0.9 cm 2. Previously seen cystic nodule within the right thyroid lobe is not seen on today's exam. 3. 0.7 X 0.4 x 0.6 cm, lower lateral, spongiform, isoechoic nodule, which is wider than tall, with ill-defined margins, with echogenic foci. TR 4. Prior size: Not seen on prior LEFT: # of nodules measured on left: 0 ISTHMUS: # of nodules measured in the isthmus: 0 Bilateral neck scanned, no evidence of lymphadenopathy. Calcified plaque identified within the bilateral common carotid arteries. IMPRESSION: There are 2 right thyroid subcentimeter TR 4 nodules. The right upper nodule is slightly smaller size from prior exam. The lower right thyroid nodule is new from prior exam. Previously seen right thyroi d cystic nodule is not visualized on today's exam. Consider follow-up ultrasound in one year.
[2023-10-27 19:23] LABS: T4, Free (Free Thyroxine) 1.51 ng/dL (0.80-1.80)
== END | disposition home or self-care (01) ==
LOC: RADUSWWP 12:01
PROVIDERS: ATTEND Internal Medicine
DX: E04.2 Nontoxic multinodular goiter (principal); E55.9 Vitamin D deficiency, unspecified
CPT/HCPCS: 76536; 82306; 84439; 84443

== ENCOUNTER 2023-11-12 09:50 | Emergency (ER) | payer MEDICARE ==
[2023-11-12 10:04] VITALS: TEMP 98.3
--- NOTE | 2023-11-12 10:19 | ED ---
URI HPI - General Chief Complaint: Upper Respiratory Infection Stated Complaint: congestion,R shoulder pain Time Seen by Provider: 11/12/23 10:05 Source: patient, RN notes reviewed Mode of arrival: ambulatory Limitations: no limitations - History of Present Illness Initial Comments: 68-year-old female with past medical history of COPD, CAD, DM, hypertension, and renal disease presenting to the ER with chief complaint of cough x 1 month with chest congestion and right shoulder pain. States cough is dry and constant. Reports feeling like her right shoulder is burning and "on fire". Admits movement makes right shoulder pain worse. States she has a current 1 pack a day smoker. Denies chest pain, palpitations, fevers, abdominal pain, vomiting. - Related Data Home Medications Medication Instructions Recorded Confirmed metFORMIN HCL [Glucophage] 500 mg PO DAILY 09/08/19 11/12/23 Esomeprazole Magnesium [NexIUM] 40 mg PO DAILY 03/06/21 11/12/23 Famotidine [Pepcid] 40 mg PO HS 03/06/21 11/12/23 HYDROcodone/APAP 10-325MG [[place] 1 tab PO QID 03/06/21 11/12/23 10-325] Isosorbide Mononitrate ER [Imdur] 30 mg PO DAILY 03/06/21 11/12/23 Losartan Potassium 50 mg PO DAILY 03/06/21 11/12/23 amLODIPine [Norvasc] 5 mg PO BID 03/06/21 11/12/23 Alendronate Sodium [Fosamax] 70 mg PO DIRECTED 11/12/23 11/12/23 Atorvastatin [Lipitor] 40 mg PO HS 11/12/23 11/12/23 Metoprolol Succinate (ER) [Toprol 25 mg PO HS 11/12/23 11/12/23 Xl] Previous Rx's Medication Instructions Recorded Albuterol Inhaler [Ventolin Hfa 1 - 2 puff INHALATION Q6H PRN #1 11/12/23 Inhaler] each Doxycycline [Vibramycin] 100 mg PO BID 7 Days #14 capsule 11/12/23 predniSONE [Deltasone] See Taper PO DAILY 9 Days #18 tab 11/12/23 Allergies Allergy/AdvReac Type Severity Reaction Status Date / Time cefaclor [From [facility]] Allergy Rash/Hives Verified 05/24/24 11:54 hydrogen peroxide Allergy Rash/Hives Verified 11/12/23 11:54 hydroxyzine [From Vistaril] Allergy Anaphylaxis Verified 11/12/23 11:54 terbinafine [From Lamisil] Allergy Anaphylaxis Verified 11/12/23 11:54 Review of Systems ROS Statement: Those systems with pertinent positive or pertinent negative responses have been documented in the HPI. ROS Other: All systems not noted in ROS Statement are negative. Past Medical History Past Medical History: Coronary Artery Disease (CAD), COPD, Diabetes Mellitus, GERD/Reflux, Hyperlipidemia, Hypertension, Myocardial Infarction ([place]), Renal Disease, Thyroid Disorder Additional Past Medical History / Comment(s): pt states "i've had 2 heart attacks" hx 2004, will see kidney Dr due to low functioning. nodules on thyroid. thin skin bruises easily. enviromental allergies. Fx spine DDD Last Myocardial Infarction Date:: 2004 History of Any Multi-Drug Resistant Organisms: None Reported Past Surgical History: Adenoidectomy, Appendectomy, Hysterectomy, Orthopedic Surgery, Tonsillectomy Additional Past Surgical History / Comment(s): bilateral feet bunion. removal of nodules on thyroid, rt foot hammer toe repair. biopsy on stomach for h -pylori Past Anesthesia/Blood Transfusion Reactions: No Reported Reaction Additional Past Anesthesia/Blood Transfusion Reaction / Comment(s): no blood transfusion Past Psychological History: Depression Smoking Status: Current every day smoker Past Alcohol Use History: None Reported Past Drug Use History: None Reported - Past Family History Brother(s) Family Medical History: Cancer Additional Family Medical History / Comment(s): thryroid cancer Sister(s) Family Medical History: Cancer, Deep Vein Thrombosis (DVT) Additional Family Medical History / Comment(s): thyroid cancer and breast Father Family Medical History: Cancer Additional Family Medical History / Comment(s): breast, General Exam Limitations: no limitations General appearance: alert, in no apparent distress Head exam: Present: atraumatic, normocephalic, normal inspection Eye exam: Present: normal appearance, PERRL, EOMI. Absent: scleral icterus, conjunctival injection, periorbital swelling ENT exam: Present: normal exam, mucous membranes moist Neck exam: Present: normal inspection. Absent: tenderness, meningismus, lymphadenopathy Respiratory exam: Present: wheezes. Absent: normal lung sounds bilaterally (Expiratory wheezing in all lung howard bilaterally), respiratory distress, rales, rhonchi, stridor Cardiovascular Exam: Present: regular rate, normal rhythm, normal heart sounds. Absent: systolic murmur, diastolic murmur, rubs, gallop, clicks GI/Abdominal exam: Present: soft, normal bowel sounds. Absent: distended, tenderness, guarding, rebound, rigid Extremities exam: Present: normal inspection, full ROM, normal capillary refill. Absent: tenderness, pedal edema, joint swelling, calf tenderness Back exam: Present: normal inspection Neurological exam: Present: alert, oriented X3, CN II-XII intact Psychiatric exam: Present: normal affect, normal mood Skin exam: Present: warm, dry, intact, normal color. Absent: rash Course Vital Signs 11/12/23 11/12/23 09:54 11:16 Temperature 98.3 F Pulse Rate 85 82 Respiratory 22 18 Rate Blood Pressure 185/71 126/69 O2 Sat by Pulse 95 95 Oximetry Medical Decision Making - Medical Decision Making Was pt. sent in by a medical professional or institution (, PA, BARKING MACHINE FEEDER, urgent care, hospital, or longterm...) When possible be specific @ -No Did you speak to anyone other than the patient for history (EMS, parent, family, police, friend...)? What history was obtained from this source @ -No Did you review nursing and triage notes (agree or disagree)? Why? @ -I reviewed and agree with nursing and triage notes Were old charts reviewed (outside hosp., previous admission, EMS record, old EK G, old radiological studies, urgent care reports/EKG's, longterm records)? Report findings @ -No old charts were reviewed Differential Diagnosis (chest pain, altered mental status, abdominal pain women, abdominal pain men, vaginal bleeding, weakness, fever, dyspnea, syncope, headache, dizziness, GI bleed, back pain, seizure, CVA, palpatations, mental health, musculoskeletal)? @ -COPD exacerbation, pneumonia, viral URI, influenza, acute bronchitis, ACS EKG interpreted by me (3pts min.). @ -As above X-rays interpreted by me (1pt min.). @ -Chest x-ray reveals COPD changes with no acute process, right shoulder x-ray negative for acute process CT interpreted by me (1pt min.). @ -None done U/S interpreted by me (1pt. min.). @ -None done What testing was considered but not performed or refused? (CT, X-rays, U/S, labs)? Why? @ -None What meds were considered but not given or refused? Why? @ -None Did you discuss the management of the patient with other professionals (professionals i.e. , PA, BARKING MACHINE FEEDER, lab, RT, psych nurse, licensed social worker, painter and body work, teacher, agricultural extension officer, onsite case manager)? Give summary @ -No Was smoking cessation discussed for >3mins.? @ -No Was critical care preformed (if so, how long)? @ -No Were there social determinants of health that impacted care today? How? (Homeles sness, low income, unemployed, alcoholism, drug addiction, transportation, low edu. Level, literacy, decrease access to med. care, skilled nursing, rehab)? @ -No Was there de-escalation of care discussed even if they declined (Discuss DNR or withdrawal of care, Hospice)? DNR status @ -No What co-morbidities impacted this encounter? (DM, HTN, Smoking, COPD, CAD, Cancer, CVA, ARF, Chemo, Hep., AIDS, mental health diagnosis, sleep apnea, morbid obesity)? @ -COPD, smoking Was patient admitted / discharged? Hospital course, mention meds given and route, prescriptions, significant lab abnormalities, going to OR and other pertinent info. @ -Patient was discharged. Patient was seen and evaluated for cough and congestion x 1 month. Vitals are within normal limits. BP is elevated upon initial examination but reduces on reexamination. Patient has diffuse expiratory wheezing in all lung howard upon examination. Chest x-ray reveals COPD changes with no acute process, right shoulder x-ray negative for acute process. EKG is unremarkable. Lab work is unremarkable. Rapid flu, COVID, RSV negative. Discussed diagnosis of acute COPD exacerbation with patient. Patient offered DuoNeb breathing treatment and first dose of steroids however patient declines and reports she would like to be discharged with prescription sent to pharmacy. Prescribed albuterol inhaler to use as needed, prednisone taper to start tomorrow, and doxycycline. Strict return/alarm symptoms discussed with patient in detail patient shows understanding and agrees with plan. Advise close follow-up with PCP in 1 to 3 days. Patient discharged in stable condition. Case discussed with Dr. Bryan. Undiagnosed new problem with uncertain prognosis? @ -No Drug Therapy requiring intensive monitoring for toxicity (Heparin, Nitro, Insulin, Cardizem)? @ -No Were any procedures done? @ -No Diagnosis/symptom? @ -Acute COPD exacerbation Acute, or Chronic, or Acute on Chronic? @ -Acute Uncomplicated (without systemic symptoms) or Complicated (systemic symptoms)? @ -Uncomplicated Side effects of treatment? @ -No Exacerbation, Progression, or Severe Exacerbation? @ -Exacerbation Poses a threat to life or bodily function? How? (Chest pain, [place], [place], pneumonia, PE, COPD, DKA, ARF, appy, cholecystitis, CVA, Diverticulitis, Homicidal, Suicidal, threat to staff... and all critical care pts) @ -No - Lab Data Result diagrams: 11/12/23 10:24 11/12/23 10: Lab Results 11/12/23 11/12/23 11/12/23 Range/Units 10:24 10:24 10:24 WBC 5.3 (3.8-10.6) k/uL RBC 4.99 (3.80-5.40) m/uL Hgb 14.8 (11.4-16.0) gm/dL Hct 45.9 (34.0-46.0) % MCV 92.0 (80.0-100.0) fL MCH 29.6 (25.0-35.0) pg MCHC 32.2 (31.0-37.0) g/dL RDW 13.1 (11.5-15.5) % Plt Count 168 (150-450) k/uL MPV 8.2 Neutrophils % 48 % Lymphocytes % 34 % Monocytes % 10 % Eosinophils % 3 % Basophils % 1 % Neutrophils # 2.5 (1.3-7.7) k/uL Lymphocytes # 1.8 (1.0-4.8) k/uL Monocytes # 0.5 (0-1.0) k/uL Eosinophils # 0.2 (0-0.7) k/uL Basophils # 0.1 (0-0.2) k/uL PT (10.0-12.5) sec INR (<1.2) APTT (22.0-30.0) sec Sodium 134 L (137-145) mmol/L Potassium 4.4 (3.5-5.1) mmol/L Chloride 104 (98-107) mmol/L Carbon Dioxide 24 (22-30) mmol/L Anion Gap 6 mmol/L BUN 15 (7-17) mg/dL Creatinine 0.90 (0.52-1.04) mg/dL Est GFR (CKD-EPI)AfAm 77 (>60 ml/min/1.73 sqM) Est GFR (CKD-EPI)NonAf 67 (>60 ml/min/1.73 sqM) Glucose 153 H (74-99) mg/dL Calcium 9.4 (8.4-10.2) mg/dL Total Bilirubin 0.5 (0.2-1.3) mg/dL AST 23 (14-36) U/L ALT 18 (4-34) U/L Alkaline Phosphatase 69 (38-126) U/L Troponin I <0.012 (0.000-0.034) ng/mL Total Protein 7.0 (6.3-8.2) g/dL Albumin 4.5 (3.5-5.0) g/dL Influenza Type A (PCR) (Not Detectd) Influenza Type B (PCR) (Not Detectd) RSV (PCR) (Not Detectd) SARS-CoV-2 (PCR) (Not Detectd) 11/12/23 11/12/23 Range/Units 10:24 10:26 WBC (3.8-10.6) k/uL RBC (3.80-5.40) m/uL Hgb (11.4-16.0) gm/dL Hct (34.0-46.0) % MCV (80.0-100.0) fL MCH (25.0-35.0) pg MCHC (31.0-37.0) g/dL RDW (11.5-15.5) % Plt Count (150-450) k/uL MPV Neutrophils % % Lymphocytes % % Monocytes % % Eosinophils % % Basophils % % Neutrophils # (1.3-7.7) k/uL Lymphocytes # (1.0-4.8) k/uL Monocytes # (0-1.0) k/uL Eosinophils # (0-0.7) k/uL Basophils # (0-0.2) k/uL PT 10.0 (10.0-12.5) sec INR 0.9 (<1.2) APTT 24.0 (22.0-30.0) sec Sodium (137-145) mmol/L Potassium (3.5-5.1) mmol/L Chloride (98-107) mmol/L Carbon Dioxide (22-30) mmol/L Anion Gap mmol/L BUN (7-17) mg/dL Creatinine (0.52-1.04) mg/dL Est GFR (CKD-EPI)AfAm (>60 ml/min/1.73 sqM) Est GFR (CKD-EPI)NonAf (>60 ml/min/1.73 sqM) Glucose (74-99) mg/dL Calcium (8.4-10.2) mg/dL Total Bilirubin (0.2-1.3) mg/dL AST (14-36) U/L ALT (4-34) U/L Alkaline Phosphatase (38-126) U/L Troponin I (0.000-0.034) ng/mL Total Protein (6.3-8.2) g/dL Albumin (3.5-5.0) g/dL Influenza Type A (PCR) Not Detected (Not Detectd) Influenza Type B (PCR) Not Detected (Not Detectd) RSV (PCR) Not Detected (Not Detectd) SARS-CoV-2 (PCR) Not Detected (Not Detectd) - EKG Data -: EKG Interpreted by Me EKG Comments: EKG reveals normal sinus rhythm with no ST changes. Ventricular rate 81 bpm, [place] interval 127, QRS duration 92, QT/QTc 389/426. Disposition Clinical Impression: Acute exacerbation of chronic obstructive pulmonary disease Disposition: HOME SELF-CARE Condition: Stable Instructions (If sedation given, give patient instructions): COPD (Chronic Obstructive Pulmonary Disease) (ED) Additional Instructions: Please follow-up with PCP in 1 to 3 days for reevaluation. Please take anti biotics and steroids as discussed. Use albuterol inhaler as needed. Please return to the Emergency Department if symptoms worsen or any other concerns. Prescriptions: predniSONE [Deltasone] See Taper PO DAILY 9 Days #18 tab Albuterol Inhaler [Ventolin Hfa Inhaler] 1 - 2 puff INHALATION Q6H PRN #1 each PRN Reason: Shortness Of Breath Doxycycline [Vibramycin] 100 mg PO BID 7 Days #14 capsule Is patient prescribed a controlled substance at d/c from ED?: No Referrals: Sarah Pace MD [Primary Care Provider] - 1-2 days Time of Disposition: 11:57
[2023-11-12 10:51] LABS: Basophils # (A) 0.1 k/uL (0-0.2); Basophils % (A) 1 %; Eosinophils # (A) 0.2 k/uL (0-0.7); Eosinophils % (A) 3 %; HCT 45.9 % (34.0-46.0); HGB 14.8 gm/dL (11.4-16.0); Lymphocytes # (A) 1.8 k/uL (1.0-4.8); Lymphocytes % (A) 34 %; MCH 29.6 pg (25.0-35.0); MCHC 32.2 g/dL (31.0-37.0); Mean Platelet Volume 8.2; Monocytes # (A) 0.5 k/uL (0-1.0); Monocytes % (A) 10 %; Neutrophils # (A) 2.5 k/uL (1.3-7.7); Neutrophils % (A) 48 %; Platelet Count 168 k/uL (150-450); RBC 4.99 m/uL (3.80-5.40); RDW 13.1 % (11.5-15.5); WBC 5.3 k/uL (3.8-10.6)
[2023-11-12 10:57] LABS: INR 0.9 (<1.2)
[2023-11-12 11:08] LABS: ALT 18 U/L (4-34); AST 23 U/L (14-36); African American GFR (CKD) 77 (>60 ml/min/1.73 sqM); Albumin 4.5 g/dL (3.5-5.0); Alkaline Phosphatase 69 U/L (38-126); Anion Gap 6 mmol/L; Blood Urea Nitrogen 15 mg/dL (7-17); Calcium 9.4 mg/dL (8.4-10.2); Carbon Dioxide 24 mmol/L (22-30); Chloride 104 mmol/L (98-107); Glucose 153 mg/dL (74-99); Non-African American GFR(CKD) 67 (>60 ml/min/1.73 sqM); Potassium 4.4 mmol/L (3.5-5.1); Sodium 134 mmol/L (137-145); Total Bilirubin 0.5 mg/dL (0.2-1.3)
--- NOTE | 2023-11-12 11:09 | XR ---
EXAMINATION TYPE: XR chest 2V DATE OF EXAM: 11/12/2023 10:42 AM CLINICAL INDICATION:Female, 68 years old with history of cough; [facility] COMPARISON: Chest radiographs from 03/06/2021 TECHNIQUE: XR chest 2V Frontal and lateral views of the chest. FINDINGS: Lungs/Pleura: There is flattening of the diaphragm with increased lucency of the lungs. No evidence o f pneumothorax, pleural effusion or focal consolidation. Pulmonary vascularity: Unremarkable. Heart/mediastinum: Cardiomediastinal silhouette is unremarkable. Atherosclerotic calcifications are seen in the aorta. Musculoskeletal: No acute osseous pathology. IMPRESSION: 1. No acute cardiopulmonary disease process. 2. COPD changes.
--- NOTE | 2023-11-12 11:09 | XR ---
EXAMINATION TYPE: XR shoulder complete RT DATE OF EXAM: 11/12/2023 10:42 AM CLINICAL INDICATION:Female, 68 years old with history of PAIN; [facility] COMPARISON: None TECHNIQUE: XR shoulder complete RT; examined in AP, internally rotated and scapular Y projections. FINDINGS: No evidence of acute osseous pathology, joint dislocation, or soft tissue swelling. The remaining po rtions of the visualized chest are unremarkable. Mild degeneration changes of the acromion, distal c lavicle with osteophyte formation. There is osteophyte formation of the glenoid and humeral head. The re is joint space narrowing of glenohumeral joint IMPRESSION: 1. No acute osseous pathology. 2. Mild shoulder osteoarthrosis.
[2023-11-12] MEDS ORDERED: IPRATROPIUM-ALBUTEROL 3 ML NEB INHALATION STA (11:36)
[2023-11-12] MEDS ORDERED: predniSONE 20 MG TAB PO STA (11:50)
[2023-11-12 12:01] VITALS: BP 126/69; PULSE 82; RESP 18
== END 2023-11-12 12:27 | disposition home or self-care (01) ==
LOC: EC 09:50
DX: J44.1 Chronic obstructive pulmonary disease with (acute) exacerbation (principal); F17.200 Nicotine dependence, unspecified, uncomplicated; Z88.8 Allergy status to other drugs, medicaments and biological substances
CPT/HCPCS: 36415; 71046; 80053; 84484; 85025; 85610; 85730; 87636; 99284